=== PATIENT | male | born 1960 | race Caucasian/White ===

== ENCOUNTER 2023-02-03 08:37 | Emergency (ER) | payer MEDICARE ==
[2023-02-03] MEDS ORDERED: Sodium Chloride 0.9% 1000 ML 1,000 ML IV SCH (08:45)
--- NOTE | 2023-02-03 09:03 | ERPHSYRPT ---
- History of Present Illness Time Seen by Provider: 02/03/23 08:45 Source: patient Exam Limitations: no limitations Patient Subjective Stated Complaint: C/O SOB that started just prior to arrival to ER. States he sleeps with a CPAP and started suddenly having increased dif ficulty breathing. Denies any pain. Triage Nursing Assessment: Patient ambulated back to ER. He is alert and oriented; anxious/tearful. SKin tone normal. No cough noted. No SOB noted. No edema noted at this time. Lungs clear. Physician History: Patient is a 62-year-old white male who presents with a complaint of shortness of breath. The reports that he was in bed and started to complain of shortness of breath began gasping. She had never seen any prior episodes similar to this. Just prior to arrival he ripped off his CPAP mask and was gasping for air. He is O2 sat was 100% on arrival the only pain he had was in his left wrist transiently. Otherwise he denies any pain at all. Timing/Duration: today Activities at Onset: sleep Severity of Dyspnea-Max: moderate Severity of Dyspnea-Current: moderate Possible Cause: no prior episodes Associated Symptoms: anxiety Allergies/Adverse Reactions: No Known Drug Allergies Allergy (Verified 02/03/23 08:39) Home Medications: Amlodipine Besylate 5 mg [Norvasc 5 mg] 10 mg PO DAILY 02/03/23 [History] Atorvastatin Calcium [Lipitor] 1 tab PO HS 02/03/23 [History] Empagliflozin [Jardiance] 1 tab PO DAILY 02/03/23 [History] Ergocalciferol (Vitamin D2) [Vitamin D2] 1 cap PO WEEKLY 02/03/23 [History] Famotidine 1 tab PO DAILY 02/03/23 [History] Fluticasone Propionate [Flonase NASAL] 1 spray INTRANASAL DAILY 02/03/23 [History] Fluticasone/Umeclidin/Vilanter [Trelegy Ellipta 100-62.5-25] 1 puff PO DAILY 02/03/23 [History] Gabapentin [Neurontin] 1 cap PO HS 02/03/23 [History] Hydrochlorothiazide 25 mg [hydroDIURIL 25 MG] 1 tab PO DAILY 02/03/23 [History] Insulin Glargine [Lantus Insulin] See Rx Instructions .ROUTE .COMPLEX 02/03/23 [History] Insulin Lispro [Humalog] 20 unit SQ TIDWMEALS 02/03/23 [History] PANTOPRAZOLE 40 mg Tablet [Protonix 40MG Tablet] 1 tab PO BID 02/03/23 [History] Ropinirole HCl 1 tab PO HS 02/03/23 [History] Semaglutide [Ozempic] 0.5 mg SQ WEEKLY 02/03/23 [History] Spironolactone 25 mg [Aldactone 25 MG] 1 tab PO DAILY 02/03/23 [History] carvediloL [Carvedilol] 1 tab PO BID 02/03/23 [History] ondansetron HCL [Ondansetron HCl] 1 tab PO Q12H PRN PRN 02/03/23 [History] Hx Tetanus, Diphtheria Vaccination/Date Given: Yes Hx Influenza Vaccination/Date Given: Yes Hx Pneumococcal Vaccination/Date Given: Yes Immunizations Up to Date: Yes Travel Risk - International Travel Have you traveled outside of the country in past 3 weeks: No - Coronavirus Screening Are you exhibiting any of the following symptoms?: Yes Symptoms: Cough: New Onset, Shortness of Breath Close contact with a COVID-19 positive Pt in past 14-21 Days: No - Vaccine Status Have you recieved a Covid-19 vaccination: Yes [employer]: Moderna - Vaccination Dates Date of 2cond Vaccination (if applicable): ? - Review of Systems Constitutional: No Fever, No Chills Eyes: No Symptoms Ears, Nose, & Throat: No Symptoms Respiratory: Dyspnea, No Cough Cardiac: No Chest Pain, No Edema, No Syncope Abdominal/Gastrointestinal: No Abdominal Pain, No Nausea, No Vomiting, No Diarrhea Genitourinary Symptoms: No Dysuria Musculoskeletal: No Back Pain, No Neck Pain Skin: No Rash Neurological: No Dizziness, No Focal Weakness, No Sensory Changes Psychological: No Symptoms Endocrine: No Symptoms All Other Systems: Reviewed and Negative - Past Medical History Pertinent Past Medical History: Yes Neurological History: Peripheral Neuropathy Respiratory History: COPD, Sleep Apnea Endocrine Medical History: Diabetes Type II Musculoskeletal History: Fractures GI Medical History: No Pertinent History Other Medical History: ANKLE FRACTURE - Past Surgical History Past Surgical History: Yes Cardiac: Cardiac Catheterization Other Surgical History: ABLASION - Social History Smoking Status: Never smoker Exposure to second hand smoke: No Drug Use: none Patient Lives Alone: No - Nursing Vital Signs Nursing Vital Signs: Initial Vital Signs Temperature 97.7 F 02/03/23 08:45 Pulse Rate 73 02/03/23 08:45 Respiratory Rate 20 02/03/23 08:45 Blood Pressure 178/62 02/03/23 08:45 O2 Sat by Pulse Oximetry 100 02/03/23 08:45 Pain Scale Pain Intensity 0 - Physical Exam General Appearance: mild distress, alert Eye Exam: PERRL/EOMI Neck Exam: normal inspection, supple Respiratory Exam: normal breath sounds, lungs clear, airway intact, No chest tenderness Cardiovascular/Chest Exam: normal heart sounds, regular rate/rhythm Abdominal/Gastrointestinal Exam: soft, No tenderness, No distention, No mass Extremity Exam: non-tender, normal range of motion, normal inspection, no calf tenderness, no pedal edema Neurologic Exam: alert, 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, cooperative, 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 nml as tested, sensation nml, No motor deficits Skin Exam: normal color, warm, No dry SpO2 Interpretation: normal SpO2: 100 O2 Delivery: Room Air - Course Nursing assessment & vital signs reviewed: Yes EKG Interpreted by Me: RATE (70), Sinus Rhythm, NORMAL AXIS, Left Bundle Branch Block, Non-specific ST Changes Rhythm Strip: Rate (70), Normal Sinus Rhythm - CT Exams Chest CT Interpretation: Tele-radiologist Report (No acute findings on the CT scan according to the telemetry radiologist), Other (Telemetry radiologist report reviewed by me.) Ordered Tests: Active Orders 24 hr Category Date Time Status EKG-ER Only STAT Care 02/03/23 08:45 Active IV Insertion STAT Care 02/03/23 08:45 Active CHEST WITH CONTRAST [CT] Stat Exams 02/03/23 08:46 Taken CBC W DIFF Stat Lab 02/03/23 08:50 Completed CMP Stat Lab 02/03/23 08:50 Completed D-DIMER QUANTITATIVE Stat Lab 02/03/23 08:50 Completed Lactic Acid Stat Lab 02/03/23 08:45 Completed Lactic Acid Stat Lab 02/03/23 11:06 Stop Req MAGNESIUM Stat Lab 02/03/23 08:50 Completed NT PRO BNPII Stat Lab 02/03/23 08:50 Completed TROPONIN Q4H Lab 02/03/23 08:50 Completed TROPONIN Q4H Lab 02/03/23 12:45 Ordered TROPONIN Q4H Lab 02/03/23 16:45 Ordered UA W/RFX UR CULTURE Stat Lab 02/03/23 09:12 Completed Medication Summary Generic Name Dose Route Start Last Admin Trade Name Jose Guadalupeq PRN Reason Stop Dose Admin Sodium Chloride 1,000 mls @ 100 mls/hr 02/03/23 08:45 02/03/23 09:04 Sodium Chloride 0.9% 1000 Ml IV 03/05/23 08:44 100 mls/hr .Q10H ALVAREZ Administration Lab/Rad Data: Laboratory Result Diagrams 02/03/23 08:50 02/03/23 08:50 Laboratory Results 02/03/23 02/03/23 02/03/23 Range/Units 09:12 09:00 08:50 WBC (4.0-10.5) x10^3/uL RBC (4.1-5.6) x10^6/uL Hgb (12.5-18.0) g/dL Hct (42-50) % MCV (78-100) fL MCH (26-32) pg MCHC (32-36) g/dL RDW (11.5-14.0) % Plt Count (150-450) x10^3/uL MPV (7.5-11.0) fL Gran % (36.0-66.0) % Immature Gran % (Auto) (0.00-0.4) % Nucleat RBC Rel Count (0.00-0.1) % Eos # (Auto) (0-0.5) x10^3/uL Immature Gran # (Auto) (0.00-0.03) x10^3u/L Absolute Lymphs (auto) (1.0-4.6) x10^3/uL Absolute Monos (auto) (0.0-1.3) x10^3/uL Absolute Nucleated RBC (0.00-0.01) x10^3u/L Lymphocytes % (24.0-44.0) % Monocytes % (0.0-12.0) % Eosinophils % (0.00-5.0) % Basophils % (0.0-0.4) % Absolute Granulocytes (1.4-6.9) x10^3/uL Basophils # (0-0.4) x10^3/uL D-Dimer (0.0-0.50) mg/L Sodium (137-145) mmol/L Potassium (3.5-5.1) mmol/L Chloride (98-107) mmol/L Carbon Dioxide (22-30) mmol/L Anion Gap (5-15) MEQ/L BUN (9-20) mg/dL Creatinine (0.66-1.25) mg/dL Estimated GFR ML/MIN Glucose (74-106) mg/dL Lactic Acid (0.4-2.0) Calcium (8.4-10.2) mg/dL Magnesium (1.6-2.3) mg/dL Total Bilirubin (0.2-1.3) mg/dL AST (17-59) U/L ALT (0-50) U/L Alkaline Phosphatase (38-126) U/L Troponin I (0.000-0.034) ng/mL NT-Pro-B Natriuret Pep 53.8 (<300) pg/mL Serum Total Protein (6.3-8.2) g/dL Albumin (3.5-5.0) g/dL Urine Color Yellow (Yellow) Urine Appearance Clear (Clear) Urine pH 7.5 (4.6-8.0) Ur Specific [place] 1.015 (1.005-1.030) Urine Protein Negative (Negative) Urine Glucose (UA) >=1000 A (Negative) mg/dL Urine Ketones Negative (Negative) Urine Blood Negative (Negative) Urine Nitrite Negative (Negative) Urine Bilirubin Negative (Negative) Urine Urobilinogen 0.2 (0.2) mg/dL Ur Leukocyte Esterase Negative (Negative) U Hyaline Cast (Auto) NONE SEEN (0-2) /LPF Urine Microscopic RBC 0-2 (0-5) /HPF Urine Microscopic WBC 0-2 (0-5) /HPF Ur Epithelial Cells None Seen (None Seen) /HPF Urine Bacteria None Seen (None Seen) /HPF Urine Culture Reflexed NO (NO) Influenza Type A Ag NEGATIVE (NEGATIVE) Influenza Type B Ag NEGATIVE (NEGATIVE) RSV (PCR) NEGATIVE (NEGATIVE) SARS-CoV-2 (PCR) NEGATIVE (NEGATIVE) 02/03/23 02/03/23 02/03/23 Range/Units 08:50 08:50 08:50 WBC 8.8 (4.0-10.5) x10^3/uL RBC 5.27 (4.1-5.6) x10^6/uL Hgb 14.9 (12.5-18.0) g/dL Hct 46.0 (42-50) % MCV 87.3 (78-100) fL MCH 28.3 (26-32) pg MCHC 32.4 (32-36) g/dL RDW 15.2 H (11.5-14.0) % Plt Count 219 (150-450) x10^3/uL MPV 9.1 (7.5-11.0) fL Gran % 63.7 (36.0-66.0) % Immature Gran % (Auto) 0.6 H (0.00-0.4) % Nucleat RBC Rel Count 0.0 (0.00-0.1) % Eos # (Auto) 0.21 (0-0.5) x10^3/uL Immature Gran # (Auto) 0.05 H (0.00-0.03) x10^3u/L Absolute Lymphs (auto) 2.12 (1.0-4.6) x10^3/uL Absolute Monos (auto) 0.75 (0.0-1.3) x10^3/uL Absolute Nucleated RBC 0.00 (0.00-0.01) x10^3u/L Lymphocytes % 24.2 (24.0-44.0) % Monocytes % 8.6 (0.0-12.0) % Eosinophils % 2.4 (0.00-5.0) % Basophils % 0.5 (0.0-0.4) % Absolute Granulocytes 5.59 (1.4-6.9) x10^3/uL Basophils # 0.04 (0-0.4) x10^3/uL D-Dimer 0.21 (0.0-0.50) mg/L Sodium 140 (137-145) mmol/L Potassium 3.5 (3.5-5.1) mmol/L Chloride 96 L (98-107) mmol/L Carbon Dioxide 31 H (22-30) mmol/L Anion Gap 16.2 H (5-15) MEQ/L BUN 21 H (9-20) mg/dL Creatinine 0.76 (0.66-1.25) mg/dL Estimated GFR > 60.0 ML/MIN Glucose 133 H (74-106) mg/dL Lactic Acid (0.4-2.0) Calcium 9.4 (8.4-10.2) mg/dL Magnesium 1.9 (1.6-2.3) mg/dL Total Bilirubin 0.50 (0.2-1.3) mg/dL AST 30 (17-59) U/L ALT 41 (0-50) U/L Alkaline Phosphatase 72 (38-126) U/L Troponin I < 0.012 (0.000-0.034) ng/mL NT-Pro-B Natriuret Pep (<300) pg/mL Serum Total Protein 8.0 (6.3-8.2) g/dL Albumin 4.7 (3.5-5.0) g/dL Urine Color (Yellow) Urine Appearance (Clear) Urine pH (4.6-8.0) Ur Specific [place] (1.005-1.030) Urine Protein (Negative) Urine Glucose (UA) (Negative) mg/dL Urine Ketones (Negative) Urine Blood (Negative) Urine Nitrite (Negative) Urine Bilirubin (Negative) Urine Urobilinogen (0.2) mg/dL Ur Leukocyte Esterase (Negative) U Hyaline Cast (Auto) (0-2) /LPF Urine Microscopic RBC (0-5) /HPF Urine Microscopic WBC (0-5) /HPF Ur Epithelial Cells (None Seen) /HPF Urine Bacteria (None Seen) /HPF Urine Culture Reflexed (NO) Influenza Type A Ag (NEGATIVE) Influenza Type B Ag (NEGATIVE) RSV (PCR) (NEGATIVE) SARS-CoV-2 (PCR) (NEGATIVE) 02/03/23 Range/Units 08:45 WBC (4.0-10.5) x10^3/uL RBC (4.1-5.6) x10^6/uL Hgb (12.5-18.0) g/dL Hct (42-50) % MCV (78-100) fL MCH (26-32) pg MCHC (32-36) g/dL RDW (11.5-14.0) % Plt Count (150-450) x10^3/uL MPV (7.5-11.0) fL Gran % (36.0-66.0) % Immature Gran % (Auto) (0.00-0.4) % Nucleat RBC Rel Count (0.00-0.1) % Eos # (Auto) (0-0.5) x10^3/uL Immature Gran # (Auto) (0.00-0.03) x10^3u/L Absolute Lymphs (auto) (1.0-4.6) x10^3/uL Absolute Monos (auto) (0.0-1.3) x10^3/uL Absolute Nucleated RBC (0.00-0.01) x10^3u/L Lymphocytes % (24.0-44.0) % Monocytes % (0.0-12.0) % Eosinophils % (0.00-5.0) % Basophils % (0.0-0.4) % Absolute Granulocytes (1.4-6.9) x10^3/uL Basophils # (0-0.4) x10^3/uL D-Dimer (0.0-0.50) mg/L Sodium (137-145) mmol/L Potassium (3.5-5.1) mmol/L Chloride (98-107) mmol/L Carbon Dioxide (22-30) mmol/L Anion Gap (5-15) MEQ/L BUN (9-20) mg/dL Creatinine (0.66-1.25) mg/dL Estimated GFR ML/MIN Glucose (74-106) mg/dL Lactic Acid 2.0 (0.4-2.0) Calcium (8.4-10.2) mg/dL Magnesium (1.6-2.3) mg/dL Total Bilirubin (0.2-1.3) mg/dL AST (17-59) U/L ALT (0-50) U/L Alkaline Phosphatase (38-126) U/L Troponin I (0.000-0.034) ng/mL NT-Pro-B Natriuret Pep (<300) pg/mL Serum Total Protein (6.3-8.2) g/dL Albumin (3.5-5.0) g/dL Urine Color (Yellow) Urine Appearance (Clear) Urine pH (4.6-8.0) Ur Specific [place] (1.005-1.030) Urine Protein (Negative) Urine Glucose (UA) (Negative) mg/dL Urine Ketones (Negative) Urine Blood (Negative) Urine Nitrite (Negative) Urine Bilirubin (Negative) Urine Urobilinogen (0.2) mg/dL Ur Leukocyte Esterase (Negative) U Hyaline Cast (Auto) (0-2) /LPF Urine Microscopic RBC (0-5) /HPF Urine Microscopic WBC (0-5) /HPF Ur Epithelial Cells (None Seen) /HPF Urine Bacteria (None Seen) /HPF Urine Culture Reflexed (NO) Influenza Type A Ag (NEGATIVE) Influenza Type B Ag (NEGATIVE) RSV (PCR) (NEGATIVE) SARS-CoV-2 (PCR) (NEGATIVE) - Progress Progress: improved Progress Note: 02/03/23 11:24 Differential diagnosis of this patient included congestive heart failure pulmonary emboli cardiac ischemia etc. the work-up for all these things was negative. Medical Desision Making - Diagnostic Testing Diagnostic test were ordered, analyzed, and reviewed by me: Yes Radiological Interpretation: Reviewed by me - Departure Departure Disposition: Home Clinical Impression: Dyspnea Condition: Stable Critical Care Time: No Referrals: BRETT VOGEL [Primary Care Provider] - Follow up/PCP as directed Instructions: Shortness of Breath (Dyspnea) (DC) Prescriptions: Hydroxyzine HCl 25 mg [Atarax 25 mg] 25 mg PO Q6H 8 Days #30 tablet
[2023-02-03] MEDS ORDERED: Sodium Chloride 0.9% 1000 ML 1,000 ML ONE (09:04)
[2023-02-03 09:05] LABS: Absolute Neutrophil Ct (ANC) 5.59 x10^3/uL (1.4-6.9); BASOPHIL % 0.5 % (0.0-0.4); Basophil (Absolute #) 0.04 x10^3/uL (0-0.4); Eosinophil % 2.4 % (0.00-5.0); Eosinophil (Absolute #) 0.21 x10^3/uL (0-0.5); Hemoglobin 14.9 g/dL (12.5-18.0); IMMATURE GRAN # 0.05 x10^3u/L (0.00-0.03); IMMATURE GRAN % 0.6 % (0.00-0.4); Lymphocyte (Absolute #) 2.12 x10^3/uL (1.0-4.6); Lymphocytes % 24.2 % (24.0-44.0); Mean Cell Volume 87.3 fL (78-100); Mean Corpuscular Hemoglobin 28.3 pg (26-32); Mean Corpuscular Hgb Concent. 32.4 g/dL (32-36); Mean Platelet Volume 9.1 fL (7.5-11.0); Monocyte (Absolute #) 0.75 x10^3/uL (0.0-1.3); Monocytes % 8.6 % (0.0-12.0); Neutrophil % 63.7 % (36.0-66.0); Platelet Count 219 x10^3/uL (150-450); Red Blood Count 5.27 x10^6/uL (4.1-5.6); Red Cell Distribution Width 15.2 % (11.5-14.0); White Blood Count 8.8 x10^3/uL (4.0-10.5)
[2023-02-03 09:28] LABS: Appearance Clear (Clear); Bacteria None Seen /HPF (None Seen); Bilirubin Negative (Negative); Blood Negative (Negative); Epithelial Cells None Seen /HPF (None Seen); Glucose, Urine >=1000 mg/dL (Negative); Hyaline Casts NONE SEEN /LPF (0-2); Ketones Negative (Negative); Leukocyte Esterase Negative (Negative); Nitrite Negative (Negative); Ph 7.5 (4.6-8.0); Protein,Urine Dip Negative (Negative); RBC 0-2 /HPF (0-5); Specific Gravity 1.015 (1.005-1.030); Urobilinogen 0.2 mg/dL (0.2); WBC 0-2 /HPF (0-5)
[2023-02-03 09:35] LABS: ALBUMIN 4.7 g/dL (3.5-5.0); ALKALINE PHOSPHATASE 72 U/L (38-126); ANION GAP 16.2 MEQ/L (5-15); BLOOD UREA NITROGEN 21 mg/dL (9-20); CHLORIDE 96 mmol/L (98-107); Calcium 9.4 mg/dL (8.4-10.2); Carbon Dioxide 31 mmol/L (22-30); Creatinine 1 0.76 mg/dL (0.66-1.25); EST GLOMERULAR FILTRATION RATE > 60.0 ML/MIN; Glucose 133 mg/dL (74-106); MAGNESIUM 1.9 mg/dL (1.6-2.3); Potassium 3.5 mmol/L (3.5-5.1); SGOT/AST 30 U/L (17-59); SGPT/ALT 41 U/L (0-50); SODIUM 140 mmol/L (137-145); TROPONIN < 0.012 ng/mL (0.000-0.034)
[2023-02-03 09:37] LABS: ADD URINE CULTURE? NO (NO)
[2023-02-03 09:43] LABS: INFLUENZA A NEGATIVE (NEGATIVE); INFLUENZA B NEGATIVE (NEGATIVE); RESPIRATORY SYNCTIAL VIRUS NEGATIVE (NEGATIVE); SARS-CoV-2 Xpert Express NEGATIVE (NEGATIVE)
[2023-02-03 11:28] VITALS: BP 143/68; PULSE 65; O2SAT 100
--- NOTE | 2023-02-03 20:07 | XRAY ---
Indication: Short of breath. COPD. Multiple contiguous axial images obtained through the chest using 100 cc Isovue 370 contrast. Comparison: None Lungs demonstrates mild bilateral dependent atelectasis and a few tiny right lung calcified granulomas. No infiltrate, effusion, or pneumothorax. Heart is enlarged with scattered coronary calcifications. Aorta mildly arteriosclerotic without aneurysm/dissection. Small left/tiny right hilar calcified nodes. No pathologic mediastinal/hilar lymphadenopathy. Bony thorax intact with mild degenerative changes throughout the spine. Limited upper abdomen demonstrates mild diffuse fatty liver and 1.9 cm posterior right lobe hepatic cyst versus hemangioma. Impression: 1. Cardiomegaly, fatty liver, hepatic cyst/hemangioma, degenerative spondylosis, and old granulomatous disease. 2. Remaining CT chest with contrast exam is negative. Comment: Preliminary interpretation made by [facility]. No critical discrepancy.
== END 2023-02-03 11:37 | disposition home or self-care (01) ==
LOC: ED 08:37
DX: R06.00 Dyspnea, unspecified (principal); E11.42 Type 2 diabetes mellitus with diabetic polyneuropathy; Z79.4 Long term (current) use of insulin; Z79.85 Long-term (current) use of injectable non-insulin antidiabetic drugs; Z79.899 Other long term (current) drug therapy; Z20.828 Contact with and (suspected) exposure to other viral communicable diseases
CPT/HCPCS: 0241U; 36000; 36415; 71260; 80053; 81001; 83605; 83735; 83880; 84484; 85025; 85379; 93005; 99284

== ENCOUNTER 2023-07-23 05:32 | Emergency (ER) | payer MEDICARE ==
[2023-07-23 06:26] VITALS: TEMP 97.3
[2023-07-23] MEDS ORDERED: Sodium Chloride 0.9% 1000 ML 1,000 ML IV STA (06:33)
[2023-07-23] MEDS ORDERED: Sodium Chloride 0.9% 1000 ML 1,000 ML ONE (06:38)
[2023-07-23 06:41] LABS: BASOPHIL % 0.5 % (0.0-0.4); Basophil (Absolute #) 0.04 x10^3/uL (0-0.4); Eosinophil % 2.8 % (0.00-5.0); Eosinophil (Absolute #) 0.24 x10^3/uL (0-0.5); Hematocrit 45.4 % (42-50); Hemoglobin 14.7 g/dL (12.5-18.0); IMMATURE GRAN # 0.04 x10^3u/L (0.00-0.03); IMMATURE GRAN % 0.5 % (0.00-0.4); Lymphocyte (Absolute #) 2.26 x10^3/uL (1.0-4.6); Lymphocytes % 26.8 % (24.0-44.0); Mean Cell Volume 90.8 fL (78-100); Mean Corpuscular Hemoglobin 29.4 pg (26-32); Mean Corpuscular Hgb Concent. 32.4 g/dL (32-36); Mean Platelet Volume 9.1 fL (7.5-11.0); Monocyte (Absolute #) 0.76 x10^3/uL (0.0-1.3); Neutrophil % 60.4 % (36.0-66.0); Platelet Count 229 x10^3/uL (150-450); Red Cell Distribution Width 15.6 % (11.5-14.0); White Blood Count 8.4 x10^3/uL (4.0-10.5)
[2023-07-23 07:08] LABS: ALBUMIN 4.4 g/dL (3.5-5.0); ALKALINE PHOSPHATASE 63 U/L (38-126); ANION GAP 11.3 MEQ/L (5-15); BLOOD UREA NITROGEN 23 mg/dL (9-20); CHLORIDE 95 mmol/L (98-107); Calcium 9.2 mg/dL (8.4-10.2); Carbon Dioxide 38 mmol/L (22-30); Creatinine 1 0.91 mg/dL (0.66-1.25); EST GLOMERULAR FILTRATION RATE > 60.0 ML/MIN; Glucose 92 mg/dL (74-106); NT PRO BNPII 67.5 pg/mL (<300); Potassium 3.3 mmol/L (3.5-5.1); SGOT/AST 31 U/L (17-59); SGPT/ALT 41 U/L (0-50); SODIUM 141 mmol/L (137-145); Total Protein 7.4 g/dL (6.3-8.2)
--- NOTE | 2023-07-23 07:17 | ERPHSYRPT ---
- History of Present Illness Time Seen by Provider: 07/23/23 07:00 Source: patient Exam Limitations: no limitations Patient Subjective Stated Complaint: pt states that yesterday around 1330 he was in his kitchen and "blacked out" falling to floor hitting right arm and head on wire rack. pt states that when he woke up he was confused as to where he was or what had happened. denies lightheadedness or dizziness before, during, or after this event. states that within a few minutes he felt better and didn't think he needed to seek medical attention. this morning when he woke up at approx 0430 he started feeling "uneasy". he reports that his normally has a "cloudy mind" since he had a head hit in 2016 after a fall but that today it has been much worse than normal and a couple of time he has been confused. he said once one the way here he forgot where he was going or how to get here then once in the waiting room he forgot where he was and had to look around to figure out that he was in the hospital. Triage Nursing Assessment: pt ambulated to room 9 independently with slow steady gait after standing on scales for weight acquisition. pt is alert and oriented times three, able to move all extremities, able to speak in complete sentences ( slow speech pattern), and with resp even and unlabored. bilat radial and pedal pulses palpable and equal. heart sound present and regular. lung sounds clear anterior bilaterally. NIHSS 0. denies numbness, tingling, n/v, diarrhea, constipation, lightheadedness, dizziness, kat, difficulty with urination or bowel elimination, fever, cough, chills, pain. reports that when he has "these spells" his mind is very cloudy, he is confused, he is nauseated, and has trouble finding the words he wants to say. delay in answering questions as pt reports it is difficult to find the words he wants or how to explain what he wants to say. denies difficulty with swallowing or speaking other than word finding. Physician History: Patient is a 62-year-old white male who suffered an episode of syncope yesterday he fell hit his head and scraped his right arm on a wire rack which was holding pots 2 of which fell off and hit him. He was somewhat confused immediately afterwards he also has been having trouble recently as far as the cloudy brain goes of being unsure of why he is where he is momentarily and being confused. He has had a recent work-up for his "cloudy brain" and is scheduled to see a neurologist with an appointment next week. His also had a recent MRI which showed some brain shrinkage. In 2016 he fell on the ice hitting his head and since that time has had short-term memory loss. He also has a cardiac history and that he had some arrhythmia he is underwent an ablation with Dr. Rosales and was able to have no further problems with arrhythmia. Witnessed: unwitnessed Prior Episodes: other Timing/Duration: yesterday (Single episode yesterday) Precipitating Factors: unknown Context: standing Loss of Consciousness: brief (seconds), memory impairment Charcter of event(s): collapsed Allergies/Adverse Reactions: No Known Drug Allergies Allergy (Verified 02/03/23 08:39) Home Medications: Amlodipine Besylate 5 mg [Norvasc 5 mg] 10 mg PO DAILY 02/03/23 [History] Atorvastatin Calcium [Lipitor] 1 tab PO DAILY 02/03/23 [History] Empagliflozin [Jardiance] 1 tab PO DAILY 02/03/23 [History] Famotidine 1 tab PO DAILY 02/03/23 [History] Fluticasone Propionate [Flonase NASAL] 1 spray INTRANASAL DAILY 02/03/23 [History] Fluticasone/Umeclidin/Vilanter [Trelegy Ellipta 100-62.5-25] 1 puff PO DAILY 02/03/23 [History] Gabapentin [Neurontin] 1 cap PO HS 02/03/23 [History] Hydrochlorothiazide 25 mg [hydroDIURIL 25 MG] 1 tab PO DAILY 02/03/23 [History] Insulin Glargine [Lantus Insulin] 80 units SQ BIDWMEALS 02/03/23 [History] Insulin Lispro [Humalog] 30 unit SQ BIDWMEALS 02/03/23 [History] PANTOPRAZOLE 40 mg Tablet [Protonix 40MG Tablet] 1 tab PO DAILY 02/03/23 [History] Ropinirole HCl 1 tab PO HS 02/03/23 [History] Semaglutide [Ozempic] 0.5 mg SQ WEEKLY 02/03/23 [History] Spironolactone 25 mg [Aldactone 25 MG] 1 tab PO DAILY 02/03/23 [History] carvediloL [Carvedilol] 1 tab PO BID 02/03/23 [History] ondansetron HCL [Ondansetron HCl] 1 tab PO Q12H PRN PRN 02/03/23 [History] Gabapentin [Neurontin ] 400 mg PO BIDWMEALS 07/23/23 [History] HydrALAzine HCL 25 MG TAB [Apresoline 25 MG TABLET] 25 mg PO BID 07/23/23 [History] Metformin HCl 500 mg [Glucophage 500 MG] 500 mg PO BIDWM 07/23/23 [History] Torsemide 20 mg [Demadex 20 mg] 20 mg PO DAILY 07/23/23 [History] Hx Tetanus, Diphtheria Vaccination/Date Given: (unknown) Hx Influenza Vaccination/Date Given: Yes Hx Pneumococcal Vaccination/Date Given: Yes Immunizations Up to Date: No Travel Risk - International Travel Have you traveled outside of the country in past 3 weeks: No - Coronavirus Screening Are you exhibiting any of the following symptoms?: No Close contact with a COVID-19 positive Pt in past 14-21 Days: No - Vaccine Status Have you recieved a Covid-19 vaccination: Yes 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: Moderna - Vaccination Dates Date of 2cond Vaccination (if applicable): unknown - Past Medical History Pertinent Past Medical History: Yes Neurological History: Peripheral Neuropathy, Other ENT History: No Pertinent History Cardiac History: Arrhythmia, Coronary Artery Disease, High Cholesterol, Hypertension Respiratory History: COPD, Sleep Apnea Endocrine Medical History: Diabetes Type II Musculoskeletal History: Fractures GI Medical History: No Pertinent History History: No Pertinent History Psycho-Social History: No Pertinent History Male Reproductive Disorders: No Pertinent History Other Medical History: ANKLE FRACTURE, "cloudy mind" seeing neurologist and MRI result of "shrinking brain" appt with Dr fabio Castanon at [facility] on 07/30/23. "irregular heartbeat" and had ablation at [facility] ([facility]) - Past Surgical History Past Surgical History: Yes Neuro Surgical History: No Pertinent History Cardiac: Cardiac Catheterization Respiratory: No Pertinent History Gastrointestinal: No Pertinent History Genitourinary: No Pertinent History Musculoskeletal: No Pertinent History Male Surgical History: No Pertinent History Other Surgical History: ABLATION - Social History Smoking Status: Never smoker Exposure to second hand smoke: No Drug Use: none Patient Lives Alone: Yes - Review of Systems Constitutional: No Fever, No Chills Eyes: No Symptoms Ears, Nose, & Throat: No Symptoms Respiratory: No Cough, No Dyspnea Cardiac: No Chest Pain, No Edema, No Syncope Abdominal/Gastrointestinal: No Abdominal Pain, No Nausea, No Vomiting, No Diarrhea Genitourinary Symptoms: No Dysuria Musculoskeletal: No Back Pain, No Neck Pain Skin: No Rash Neurological: Other (Syncope), No Dizziness, No Focal Weakness, No Sensory Changes Psychological: No Symptoms Endocrine: No Symptoms All Other Systems: Reviewed and Negative Physical Exam - Nursing Vital Signs Nursing Vital Signs: Initial Vital Signs Temperature 97.3 F 07/23/23 05:57 Pulse Rate 62 07/23/23 05:57 Respiratory Rate 16 07/23/23 05:57 Blood Pressure 173/88 07/23/23 05:57 O2 Sat by Pulse Oximetry 98 07/23/23 05:57 Pain Scale Pain Intensity 0 - Renetta Coma Scale Best Eye Response (Renetta): (4) open spontaneously Best Verbal Response (Baudette): (5) oriented Best Motor Response (Baudette): (6) obeys commands Renetta Total: 15 - Physical Exam General Appearance: no apparent distress, alert Eye Exam: bilateral eye: PERRL, EOMI Ears, Nose, Throat Exam: normal ENT inspection, pharynx normal, moist mucous membranes Neck Exam: normal inspection, non-tender, supple, full range of motion Respiratory: normal breath sounds, lungs clear, No chest tenderness, No respiratory distress Cardiovascular: regular rate/rhythm, capillary refill <2 sec, No murmur, No pulse deficit Gastrointestinal: soft, No tenderness, No distention, No mass Back Exam: normal inspection, normal range of motion, No CVA tenderness, No silvia tebral tenderness Extremity Exam: normal inspection, normal range of motion, pelvis stable, No tenderness Mental Status: alert, 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, 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 Exam: normal speech, PERRL, No facial droop Coordination/Gait: normal finger to nose Motor/Sensory: no motor deficit, no sensory deficit, no pronator drift Skin Exam: normal color, warm, dry, No rash SpO2: 94 - Course Nursing assessment & vital signs reviewed: Yes EKG Interpreted by Me: RATE (61), Sinus Rhythm, Left Bon Aqua Deviation, Other (Left ventricular hypertrophy nonspecific interventricular conduction defect with left axis deviation) - CT Exams Head CT Interpretation: Negative Ordered Tests: Active Orders 24 hr Category Date Time Status EKG-ER Only STAT Care 07/23/23 06:33 Active IV Insertion STAT Care 07/23/23 06:33 Active HEAD WITHOUT CONTRAST [CT] Stat Exams 07/23/23 06:59 Completed CBC W DIFF Stat Lab 07/23/23 06:21 Completed CMP Stat Lab 07/23/23 06:21 Completed D-DIMER QUANTITATIVE Stat Lab 07/23/23 06:21 Completed Lactic Acid Stat Lab 07/23/23 06:40 Completed NT PRO BNPII Stat Lab 07/23/23 06:21 Completed TROPONIN Q4H Lab 07/23/23 06:21 Completed TROPONIN Q4H Lab 07/23/23 10:45 Ordered TROPONIN Q4H Lab 07/23/23 14:45 Ordered Medication Summary Discontinued Medications Generic Name Dose Route Start Last Admin Trade Name Ruben PRN Reason Stop Dose Admin Sodium Chloride 1,000 mls @ 999 mls/hr 07/23/23 06:33 07/23/23 08:20 Sodium Chloride 0.9% 1000 Ml IV 07/23/23 07:33 Infused .Q1H1M STA Infusion Sodium Chloride Confirm 07/23/23 06:38 Sodium Chloride 0.9% 1000 Ml Administered 07/23/23 06:39 Dose 1,000 mls @ ud .[facility] .[email or web address] Lab/Rad Data: Laboratory Result Diagrams 07/23/23 06:21 07/23/23 06:21 Laboratory Results 07/23/23 07/23/23 07/23/23 Range/Units 06:40 06:21 06:21 WBC (4.0-10.5) x10^3/uL RBC (4.1-5.6) x10^6/uL Hgb (12.5-18.0) g/dL Hct (42-50) % MCV (78-100) fL MCH (26-32) pg MCHC (32-36) g/dL RDW (11.5-14.0) % Plt Count (150-450) x10^3/uL MPV (7.5-11.0) fL Gran % (36.0-66.0) % Immature Gran % (Auto) (0.00-0.4) % Nucleat RBC Rel Count (0.00-0.1) % Eos # (Auto) (0-0.5) x10^3/uL Immature Gran # (Auto) (0.00-0.03) x10^3u/L Absolute Lymphs (auto) (1.0-4.6) x10^3/uL Absolute Monos (auto) (0.0-1.3) x10^3/uL Absolute Nucleated RBC (0.00-0.01) x10^3u/L Lymphocytes % (24.0-44.0) % Monocytes % (0.0-12.0) % Eosinophils % (0.00-5.0) % Basophils % (0.0-0.4) % Absolute Granulocytes (1.4-6.9) x10^3/uL Basophils # (0-0.4) x10^3/uL D-Dimer 0.27 (0.0-0.50) mg/L Sodium (137-145) mmol/L Potassium (3.5-5.1) mmol/L Chloride (98-107) mmol/L Carbon Dioxide (22-30) mmol/L Anion Gap (5-15) MEQ/L BUN (9-20) mg/dL Creatinine (0.66-1.25) mg/dL Estimated GFR ML/MIN Glucose (74-106) mg/dL Lactic Acid 2.3 H (0.4-2.0) Calcium (8.4-10.2) mg/dL Total Bilirubin (0.2-1.3) mg/dL AST (17-59) U/L ALT (0-50) U/L Alkaline Phosphatase (38-126) U/L Troponin I < 0.012 (0.000-0.034) ng/mL NT-Pro-B Natriuret Pep (<300) pg/mL Serum Total Protein (6.3-8.2) g/dL Albumin (3.5-5.0) g/dL 07/23/23 07/23/23 Range/Units 06:21 06:21 WBC 8.4 (4.0-10.5) x10^3/uL RBC 5.00 (4.1-5.6) x10^6/uL Hgb 14.7 (12.5-18.0) g/dL Hct 45.4 (42-50) % MCV 90.8 (78-100) fL MCH 29.4 (26-32) pg MCHC 32.4 (32-36) g/dL RDW 15.6 H (11.5-14.0) % Plt Count 229 (150-450) x10^3/uL MPV 9.1 (7.5-11.0) fL Gran % 60.4 (36.0-66.0) % Immature Gran % (Auto) 0.5 H (0.00-0.4) % Nucleat RBC Rel Count 0.0 (0.00-0.1) % Eos # (Auto) 0.24 (0-0.5) x10^3/uL Immature Gran # (Auto) 0.04 H (0.00-0.03) x10^3u/L Absolute Lymphs (auto) 2.26 (1.0-4.6) x10^3/uL Absolute Monos (auto) 0.76 (0.0-1.3) x10^3/uL Absolute Nucleated RBC 0.00 (0.00-0.01) x10^3u/L Lymphocytes % 26.8 (24.0-44.0) % Monocytes % 9.0 (0.0-12.0) % Eosinophils % 2.8 (0.00-5.0) % Basophils % 0.5 (0.0-0.4) % Absolute Granulocytes 5.10 (1.4-6.9) x10^3/uL Basophils # 0.04 (0-0.4) x10^3/uL D-Dimer (0.0-0.50) mg/L Sodium 141 (137-145) mmol/L Potassium 3.3 L (3.5-5.1) mmol/L Chloride 95 L (98-107) mmol/L Carbon Dioxide 38 H (22-30) mmol/L Anion Gap 11.3 (5-15) MEQ/L BUN 23 H (9-20) mg/dL Creatinine 0.91 (0.66-1.25) mg/dL Estimated GFR > 60.0 ML/MIN Glucose 92 (74-106) mg/dL Lactic Acid (0.4-2.0) Calcium 9.2 (8.4-10.2) mg/dL Total Bilirubin 0.40 (0.2-1.3) mg/dL AST 31 (17-59) U/L ALT 41 (0-50) U/L Alkaline Phosphatase 63 (38-126) U/L Troponin I (0.000-0.034) ng/mL NT-Pro-B Natriuret Pep 67.5 (<300) pg/mL Serum Total Protein 7.4 (6.3-8.2) g/dL Albumin 4.4 (3.5-5.0) g/dL - Progress Progress: improved Medical Desision Making - Diagnostic Testing Diagnostic test were ordered, analyzed, and reviewed by me: Yes Radiological Interpretation: Reviewed by me - Risk of complications Low Risk: Low risk of morbidity from additional dx testing or treatment - Departure Departure Disposition: Home Clinical Impression: Syncope Condition: Stable Critical Care Time: No Referrals: AKI DANG MD [Primary Care Provider] - Follow up/PCP as directed Instructions: Syncope (Fainting) (DC)
--- NOTE | 2023-07-23 08:14 | XRAY ---
CLINICAL HISTORY:syncope COMPARISON:None TECHNIQUE:Axial noncontrast CT scan of the brain was performed from the skull base to the high parietal region. CTDI: 53.92, DLP: 1016.25. FINDINGS: The visualized brain parenchyma shows normal appearance. No focal parenchymal abnormalities are demonstrated. Tracey-white matter differentiation is maintained. Mild prominent ventricular system and extra-axial CSF spaces suggesting age-related involutional changes. No midline shifts or deformity. No intracerebral or extra axial hematoma. Normal size and configuration of the cerebral ventricles. Normal CT appearance of the posterior fossa structures namely the cerebellar hemispheres, brainstem and cerebellar peduncles. The IACs are unremarkable. The cerebello-pontine angles are clear. The pituitary gland, the pineal gland, the optic chiasm is unremarkable. The osseous structures in the skull base are unremarkable. No definite calvarium fractures. Mild mucosal thickening of the right side of sphenoid sinus. IMPRESSION: No evidence of established infarction, intracranial or extracranial hemorrhage. Age-related brain involutional changes. Electronically Signed by: Anh Can MD. (07/23/2023 07:13:39 CUSTOMER FACILITIES SUPERVISOR)
[2023-07-23 09:55] VITALS: BP 169/81; PULSE 68; RESP 16; O2SAT 96
== END 2023-07-23 09:56 | disposition home or self-care (01) ==
LOC: ED 05:32
DX: R55 Syncope and collapse (principal); R41.0 Disorientation, unspecified; E78.5 Hyperlipidemia, unspecified; I10 Essential (primary) hypertension; E11.42 Type 2 diabetes mellitus with diabetic polyneuropathy; Z79.84 Long term (current) use of oral hypoglycemic drugs; Z79.4 Long term (current) use of insulin; Z79.85 Long-term (current) use of injectable non-insulin antidiabetic drugs; Z79.899 Other long term (current) drug therapy
CPT/HCPCS: 36000; 36415; 70450; 80053; 83605; 83880; 84484; 85025; 85379; 93005; 96360; 99284

== ENCOUNTER 2023-11-08 10:49 | Emergency (ER) | payer MEDICARE ==
--- NOTE | 2023-11-08 10:57 | ERPHSYRPT ---
- History of Present Illness Time Seen by Provider: 11/08/23 10:57 Historian: patient Exam Limitations: no limitations Physician History: This is a morbidly obese 63-year-old white male patient of Dr. Dang who presents to the emergency department with intermittent central abdominal pain that been present over the last 2 weeks. In the last 12 hours prior to arrival, the patient states that the pain is now constant with some cramping pressure and associated nausea and vomiting. Patient vomited twice prior to arrival. Patient's last bowel movement was 2 days ago. Patient underwent a colonoscopy 6 to 8 years ago. Patient denies chest pain. Patient denies fever. Patient denies cough. Patient denies shortness of breath. Patient has a history of diabetes, peripheral neuropathy, hypertension, gastroesophageal reflux disease, hyperlipidemia, COPD, osteoarthritis and has had a cardiac ablation in the past. Activities at Onset: none Quality: cramping, pressure Abdominal Pain Onset Location: generalized abdomen Pain Radiation: no radiation Severity of Pain-Max: moderate Severity of Pain-Current: moderate Modifying Factors: Improves With: vomiting. Worsens With: coughing Associated Symptoms: loss of appetite, nausea, vomiting, No chest pain, No diarrhea, No fever/chills, No shortness of breath Previous symptoms: no prior history, no recent treatment Allergies/Adverse Reactions: No Known Drug Allergies Allergy (Verified 11/08/23 10:54) Home Medications: Amlodipine Besylate 5 mg [Norvasc 5 mg] 10 mg PO DAILY 02/03/23 [History] Atorvastatin Calcium [Lipitor] 1 tab PO DAILY 02/03/23 [History] Empagliflozin [Jardiance] 1 tab PO DAILY 02/03/23 [History] Famotidine 1 tab PO DAILY 02/03/23 [History] Fluticasone Propionate [Flonase NASAL] 1 spray INTRANASAL DAILY 02/03/23 [History] Fluticasone/Umeclidin/Vilanter [Trelegy Ellipta 100-62.5-25] 1 puff PO DAILY 02/03/23 [History] Gabapentin [Neurontin] 1 cap PO HS 02/03/23 [History] Hydrochlorothiazide 25 mg [hydroDIURIL 25 MG] 1 tab PO DAILY 02/03/23 [History] Insulin Glargine [Lantus Insulin] 80 units SQ BIDWMEALS 02/03/23 [History] Insulin Lispro [Humalog] 30 unit SQ BIDWMEALS 02/03/23 [History] PANTOPRAZOLE 40 mg Tablet [Protonix 40MG Tablet] 1 tab PO DAILY 02/03/23 [History] Ropinirole HCl 1 tab PO HS 02/03/23 [History] Semaglutide [Ozempic] 0.5 mg SQ WEEKLY 02/03/23 [History] Spironolactone 25 mg [Aldactone 25 MG] 1 tab PO DAILY 02/03/23 [History] carvediloL [Carvedilol] 1 tab PO BID 02/03/23 [History] Gabapentin [Neurontin ] 400 mg PO BIDWMEALS 07/23/23 [History] HydrALAzine HCL 25 MG TAB [Apresoline 25 MG TABLET] 25 mg PO BID 07/23/23 [History] Metformin HCl 500 mg [Glucophage 500 MG] 500 mg PO BIDWM 07/23/23 [History] Torsemide 20 mg [Demadex 20 mg] 20 mg PO DAILY 07/23/23 [History] Amoxicillin 500 mg PO BID 11/08/23 [History] Hx Tetanus, Diphtheria Vaccination/Date Given: (unknown) Hx Influenza Vaccination/Date Given: Yes Hx Pneumococcal Vaccination/Date Given: Yes Travel Risk - International Travel Have you traveled outside of the country in past 3 weeks: No - Coronavirus Screening Are you exhibiting any of the following symptoms?: Yes Symptoms: Vomiting/Diarrhea - Vaccine Status Have you recieved a Covid-19 vaccination: Yes 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 - Vaccination Dates Date of 2cond Vaccination (if applicable): unknown - Review of Systems Constitutional: No Symptoms Eyes: No Symptoms Ears, Nose, & Throat: No Symptoms Respiratory: No Symptoms Cardiac: No Symptoms Abdominal/Gastrointestinal: Abdominal Pain, Nausea, Vomiting, Appetite Changes, No Diarrhea, No Constipation Genitourinary Symptoms: No Symptoms Musculoskeletal: No Symptoms Skin: No Symptoms Neurological: No Symptoms Psychological: No Symptoms Endocrine: No Symptoms Hematologic/Lymphatic: No Symptoms Immunological/Allergic: No Symptoms All Other Systems: Reviewed and Negative - Past Medical History Pertinent Past Medical History: Yes Neurological History: Peripheral Neuropathy, Other ENT History: No Pertinent History Cardiac History: Hypertension Respiratory History: COPD Endocrine Medical History: Diabetes Type II Musculoskeletal History: Osteoarthritis GI Medical History: No Pertinent History History: No Pertinent History Psycho-Social History: No Pertinent History Male Reproductive Disorders: No Pertinent History Other Medical History: SEVERE CONCUSSION WITH TBI, L ANKLE FRACTURE, MULTIPLE L AKLE SPRAINS A KID. - Past Surgical History Past Surgical History: Yes Neuro Surgical History: No Pertinent History Cardiac: Cardiac Catheterization Respiratory: No Pertinent History Gastrointestinal: No Pertinent History Genitourinary: No Pertinent History Musculoskeletal: No Pertinent History Male Surgical History: No Pertinent History Other Surgical History: ABLATION - Social History Smoking Status: Never smoker Exposure to second hand smoke: No Drug Use: none Patient Lives Alone: Yes - Nursing Vital Signs Nursing Vital Signs: Initial Vital Signs Blood Pressure 161/70 11/08/23 11:01 O2 Sat by Pulse Oximetry 93 L 11/08/23 11:01 Pain Scale Pain Intensity 9 - Physical Exam General Appearance: mild distress, alert, anxiety, obese Eye Exam: PERRL/EOMI, eyes nml inspection Ears, Nose, Throat Exam: normal ENT inspection, moist mucous membranes Neck Exam: normal inspection, non-tender, supple, full range of motion Respiratory Exam: normal breath sounds, lungs clear, airway intact, No chest tenderness, No respiratory distress Cardiovascular Exam: regular rate/rhythm, normal heart sounds, normal peripheral pulses Gastrointestinal/Abdomen Exam: soft, normal bowel sounds, tenderness (Diffuse to palpation), guarding (Mild diffuse to palpation), No rebound Rectal Exam: not done Back Exam: normal inspection, normal range of motion, No CVA tenderness, No vertebral tenderness Extremity Exam: normal inspection, normal range of motion, pelvis stable Neurologic Exam: alert, 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, cooperative, dental services director II-XII nml as tested, normal mood/affect, nml cerebellar function, nml station & gait, sensation nml Skin Exam: normal color, warm, dry Lymphatic Exam: No adenopathy SpO2 Interpretation: normal O2 Delivery: Room Air - Course Nursing assessment & vital signs reviewed: Yes Ordered Tests: Active Orders 24 hr Category Date Time Status IV Insertion STAT Care 11/08/23 11:16 Active ABDOMEN AND PELVIS W/0 CONTRAS [CT] Stat Exams 11/08/23 11:17 Completed AMYLASE Stat Lab 11/08/23 11:20 Completed BLOOD CULTURE Stat Lab 11/08/23 13:10 Received CBC W DIFF Stat Lab 11/08/23 11:20 Completed CMP Stat Lab 11/08/23 11:20 Completed LIPASE Stat Lab 11/08/23 11:20 Completed MONO SCREEN Stat Lab 11/08/23 Completed Manual Differential NC Stat Lab 11/08/23 11:20 Completed Medication Summary Discontinued Medications Generic Name Dose Route Start Last Admin Trade Name Freq PRN Reason Stop Dose Admin Hydromorphone HCl 1 mg 11/08/23 11:16 11/08/23 11:30 Hydromorphone 1 Mg/1ml Inj IV 11/08/23 11:17 1 mg STAT ONE Administration Hydromorphone HCl Confirm 11/08/23 11:28 Hydromorphone 1 Mg/1ml Inj Administered 11/08/23 11:29 Dose 1 mg .ROUTE .STK-MED ONE Sodium Chloride 1,000 mls @ 999 mls/hr 11/08/23 11:16 11/08/23 12:51 Sodium Chloride 0.9% 1000 Ml IV 11/08/23 12:16 Infused .Q1H1M STA Infusion Sodium Chloride Confirm 11/08/23 11:28 Sodium Chloride 0.9% 1000 Ml Administered 11/08/23 11:29 Dose 1,000 mls @ ud .ROUTE .STK-MED ONE Ondansetron HCl 4 mg 11/08/23 11:16 11/08/23 11:33 Ondansetron Hcl 4 Mg/2 Ml Vial IV 11/08/23 11:17 4 mg STAT ONE Administration Ondansetron HCl Confirm 11/08/23 11:28 Ondansetron Hcl 4 Mg/2 Ml Vial Administered 11/08/23 11:29 Dose 4 mg .ROUTE .STK-MED ONE Pantoprazole Sodium 40 mg 11/08/23 11:16 11/08/23 11:33 Pantoprazole 40 Mg Vial IV 11/08/23 11:17 40 mg STAT ONE Administration Pantoprazole Sodium Confirm 11/08/23 11:28 Pantoprazole 40 Mg Vial Administered 11/08/23 11:29 Dose 40 mg IV .STK-MED ONE Lab/Rad Data: Laboratory Result Diagrams 11/08/23 11:20 12/28/23 11:20 Laboratory Results 11/08/23 11/08/23 11/08/23 Range/Units Unknown 11:31 11:31 WBC (4.0-10.5) x10^3/uL RBC (4.1-5.6) x10^6/uL Hgb (12.5-18.0) g/dL Hct (42-50) % MCV (78-100) fL MCH (26-32) pg MCHC (32-36) g/dL RDW (11.5-14.0) % Plt Count (150-450) x10^3/uL MPV (7.5-11.0) fL Segmented Neutrophils (36.-66.) % Lymphocytes (Manual) (24-44) % Monocytes (Manual) (0.0-12.0) % Eosinophils (Manual) (0.00-3.0) % Toxic Granulation Platelet Estimate (NORMAL) RBC Morphology Anisocytosis Sodium (137-145) mmol/L Potassium (3.5-5.1) mmol/L Chloride (98-107) mmol/L Carbon Dioxide (22-30) mmol/L Anion Gap (5-15) MEQ/L BUN (9-20) mg/dL Creatinine (0.66-1.25) mg/dL Estimated GFR ML/MIN Glucose (74-106) mg/dL Calcium (8.4-10.2) mg/dL Total Bilirubin (0.2-1.3) mg/dL AST (17-59) U/L ALT (0-50) U/L Alkaline Phosphatase (38-126) U/L Serum Total Protein (6.3-8.2) g/dL Albumin (3.5-5.0) g/dL Amylase (30-110) U/L Lipase (23-300) U/L Urine Color YELLOW (YELLOW) Urine Appearance CLEAR (CLEAR) Urine pH 5.5 (5-6) Ur Specific [place] 1.010 (1.005-1.025) POC Urine Protein Conf NEGATIVE (Negative) Urine Ketones NEGATIVE (NEGATIVE) Urine Nitrite NEGATIVE (NEGATIVE) Urine Bilirubin NEGATIVE (NEGATIVE) Urine Urobilinogen 1 A (0-1) mg/dL Urine Leukocytes NEGATIVE (NEGATIVE) U Hyaline Cast (Auto) NONE SEEN (0-2) /LPF Urine RBC NEGATIVE (0-5) Skinny/ul Urine Microscopic RBC 0-2 (0-5) /HPF Urine Microscopic WBC 0-2 (0-5) /HPF Ur Epithelial Cells None Seen (None Seen) /HPF Urine Bacteria None Seen (None Seen) /HPF Urine Culture Reflexed NO (NO) Urine Glucose >=1000 A (NEGATIVE) mg/dL Monoscreen NEGATIVE (NEGATIVE) Influenza Type A Ag NEGATIVE (NEGATIVE) Influenza Type B Ag NEGATIVE (NEGATIVE) RSV (PCR) NEGATIVE (NEGATIVE) SARS-CoV-2 (PCR) NEGATIVE (NEGATIVE) 11/08/23 11/08/23 Range/Units 11:20 11:20 WBC 23.5 H (4.0-10.5) x10^3/uL RBC 5.62 H (4.1-5.6) x10^6/uL Hgb 16.3 (12.5-18.0) g/dL Hct 50.3 H (42-50) % MCV 89.5 (78-100) fL MCH 29.0 (26-32) pg MCHC 32.4 (32-36) g/dL RDW 15.0 H (11.5-14.0) % Plt Count 246 (150-450) x10^3/uL MPV 9.0 (7.5-11.0) fL Segmented Neutrophils 91 H (36.-66.) % Lymphocytes (Manual) 3 L (24-44) % Monocytes (Manual) 5 (0.0-12.0) % Eosinophils (Manual) 1 (0.00-3.0) % Toxic Granulation 1+ Platelet Estimate NORMAL (NORMAL) RBC Morphology ABNORMAL Anisocytosis 1+ Sodium 137 (137-145) mmol/L Potassium 3.9 (3.5-5.1) mmol/L Chloride 95 L (98-107) mmol/L Carbon Dioxide 32 H (22-30) mmol/L Anion Gap 13.5 (5-15) MEQ/L BUN 26 H (9-20) mg/dL Creatinine 0.95 (0.66-1.25) mg/dL Estimated GFR 88.8 ML/MIN Glucose 132 H (74-106) mg/dL Calcium 9.1 (8.4-10.2) mg/dL Total Bilirubin 0.70 (0.2-1.3) mg/dL AST 32 (17-59) U/L ALT 38 (0-50) U/L Alkaline Phosphatase 78 (38-126) U/L Serum Total Protein 8.1 (6.3-8.2) g/dL Albumin 4.5 (3.5-5.0) g/dL Amylase 70 (30-110) U/L Lipase 101 (23-300) U/L Urine Color (YELLOW) Urine Appearance (CLEAR) Urine pH (5-6) Ur Specific [place] (1.005-1.025) POC Urine Protein Conf (Negative) Urine Ketones (NEGATIVE) Urine Nitrite (NEGATIVE) Urine Bilirubin (NEGATIVE) Urine Urobilinogen (0-1) mg/dL Urine Leukocytes (NEGATIVE) U Hyaline Cast (Auto) (0-2) /LPF Urine RBC (0-5) Skinny/ul Urine Microscopic RBC (0-5) /HPF Urine Microscopic WBC (0-5) /HPF Ur Epithelial Cells (None Seen) /HPF Urine Bacteria (None Seen) /HPF Urine Culture Reflexed (NO) Urine Glucose (NEGATIVE) mg/dL Monoscreen (NEGATIVE) Influenza Type A Ag (NEGATIVE) Influenza Type B Ag (NEGATIVE) RSV (PCR) (NEGATIVE) SARS-CoV-2 (PCR) (NEGATIVE) - Progress Progress: improved, re-examined Progress Note: 11/08/23 11:34 Patient's medical issue is 1 of moderate complexity. The level complexity in the workup performed is based on review of the patient's past medical history, review of the patient's medication list, review the patient's drug allergy list, history of present illness and physical findings on examination. Workup in this patient includes placement of intravenous line, infusion of Dilaudid and Zofran intravenously, amylase, lipase, CBC, CMP, urinalysis, viral swabs, CT scan of the abdomen pelvis without contrast. 11/08/23 12:[address] scan of the abdomen pelvis without contrast was interpreted by the radiologist and I reviewed the impression. The impression reads mild diffuse fecal stasis. There is a fatty left inguinal hernia. There is no abdominal aortic aneurysm. There is arteriosclerotic disease of the vessels. Hepatic cyst versus hemangioma. There are bilateral renal cysts present. 11/08/23 13:45 I interpreted the patient's laboratory data results. Patient has a leukocytosis of significant value of 23.5. This is likely secondary to the vomiting episodes that he had this morning. There is no radiographic or other laboratory evidence of bacterial or viral infection. I had a discussion with this patient and we will mostly send a prescription of cefdinir to his pharmacy. I ordered a blood culture and the results of this will be back for 48 hours. A more detailed discussion provided more information. That is, the patient has chronic recurring vomiting episodes and he is on Zofran every 4 hours as needed. He does not have an emergent cause of his abdominal pain or vomiting issues from today. Therefore, we will discharge him to home after he receives the full liter of normal saline solution. Counseled pt/family regarding: lab results, diagnosis, need for follow-up Medical Desision Making - Diagnostic Testing Diagnostic test were ordered, analyzed, and reviewed by me: Yes Radiological Interpretation: Reviewed by me, Teleradiologist Report - Risk of complications The pt has a mod risk of morbidity or mortality based on: Need for prescription drug management - Departure Departure Disposition: Home Clinical Impression: Chronic vomiting, Abdominal pain, Leukocytosis Condition: Stable Critical Care Time: No Referrals: AKI DANG MD [Primary Care Provider] - Follow up/PCP as directed Additional Instructions: Drink plenty of clear liquids before advancing your diet. Continue using your Zofran as prescribed. Call your primary care provider and or your [place] stroenterologist today, 11/08/2023, to to arrange a follow-up appointment in the next 3 to 5 days. Avoid fatty greasy spicy foods. Prescriptions: Cefdinir 300 mg PO BID #14 cap
[2023-11-08 11:05] VITALS: PULSE 79; TEMP 97.7
[2023-11-08] MEDS ORDERED: Sodium Chloride 0.9% 1000 ML 1,000 ML IV STA (11:16)
[2023-11-08] MEDS ORDERED: PROTONIX 40 MG IV IV ONE ×2 (11:16→11:28)
[2023-11-08] MEDS ORDERED: Zofran 4 MG/2 ML VIAL IV ONE (11:16)
[2023-11-08] MEDS ORDERED: Hydromorphone 1 mg/ml Injection IV ONE (11:16)
[2023-11-08 11:28] LABS: Hematocrit 50.3 % (42-50); Hemoglobin 16.3 g/dL (12.5-18.0); Mean Cell Volume 89.5 fL (78-100); Mean Corpuscular Hgb Concent. 32.4 g/dL (32-36); Platelet Count 246 x10^3/uL (150-450); Red Blood Count 5.62 x10^6/uL (4.1-5.6); White Blood Count 23.5 x10^3/uL (4.0-10.5)
[2023-11-08] MEDS ORDERED: Hydromorphone 1 mg/ml Injection ONE (11:28)
[2023-11-08] MEDS ORDERED: Zofran 4 MG/2 ML VIAL ONE (11:28)
[2023-11-08] MEDS ORDERED: Sodium Chloride 0.9% 1000 ML 1,000 ML ONE (11:28)
[2023-11-08 11:43] LABS: ALBUMIN 4.5 g/dL (3.5-5.0); ANION GAP 13.5 MEQ/L (5-15); BILIRUBIN,TOTAL 0.7 mg/dL (0.2-1.3); Calcium 9.1 mg/dL (8.4-10.2); Creatinine 1 0.95 mg/dL (0.66-1.25); EST GLOMERULAR FILTRATION RATE 88.8 ML/MIN; Potassium 3.9 mmol/L (3.5-5.1); Total Protein 8.1 g/dL (6.3-8.2)
[2023-11-08 11:48] LABS: Eosinophil 1 % (0.00-3.0); Lymphocytes 3 % (24-44); Monocyte 5 % (0.0-12.0); Neutrophils 91 % (36.-66.); Platelet Estimate NORMAL (NORMAL); Total Cells Counted 100; Toxic Granulation 1+
[2023-11-08 11:49] LABS: ANISOCYTOSIS 1+
[2023-11-08 12:04] VITALS: RESP 16
[2023-11-08 12:06] LABS: Bacteria None Seen /HPF (None Seen); Epithelial Cells None Seen /HPF (None Seen); Hyaline Casts NONE SEEN /LPF (0-2); RBC 0-2 /HPF (0-5); WBC 0-2 /HPF (0-5)
[2023-11-08 12:14] LABS: Appearance CLEAR (CLEAR); Bilirubin NEGATIVE (NEGATIVE); Glucose >=1000 mg/dL (NEGATIVE); Ketones NEGATIVE (NEGATIVE); Ph 5.5 (5-6); RBC NEGATIVE Ery/ul (0-5)
[2023-11-08 12:15] LABS: ADD URINE CULTURE? NO (NO); Nitrite NEGATIVE (NEGATIVE); Protein,Urine Dip NEGATIVE (Negative); Urobilinogen 1 mg/dL (0-1)
--- NOTE | 2023-11-08 12:23 | XRAY ---
Indication: Intermittent abdomen pain 3 weeks. Multiple contiguous axial images obtained through the abdomen and pelvis without contrast. Comparison: None Lung bases clear of infiltrate and effusion. Heart not enlarged with prominent epicardiac fat. Noncontrasted stomach and bowel loops appear nonobstructed with normal appendix. Mild diffuse scattered colonic fecal debris throughout including rectum. Mild diffuse fatty liver. Posterior right lobe liver demonstrates 2 cm focus of hypoattenuation reported as cyst versus hemangioma on CT chest with contrast exam February 03, 2023. A few bilateral renal cysts, largest 4 cm right kidney. No free fluid/air. Remaining liver, gallbladder, pancreas, spleen, adrenal glands, kidneys, ureters, and bladder are unremarkable for noncontrast exam. Mild diffuse scattered aortoiliac calcifications without AAA. Osseous structures intact with mild/moderate degenerative changes throughout the thoracolumbar spine and mild degenerative changes both hips. Small fatty left inguinal hernia. Impression: 1. Mild diffuse fecal stasis. 2. Chronic findings including fatty liver, hepatic cyst versus hemangioma, bilateral renal cysts, arteriosclerotic disease, fatty left inguinal hernia, and chronic bony findings. 2. Remaining CT abdomen/pelvis without contrast exam is negative.
[2023-11-08 12:38] LABS: INFLUENZA A NEGATIVE (NEGATIVE); INFLUENZA B NEGATIVE (NEGATIVE); RESPIRATORY SYNCTIAL VIRUS NEGATIVE (NEGATIVE); SARS-CoV-2 Xpert Express NEGATIVE (NEGATIVE)
[2023-11-08 14:04] VITALS: BP 160/81; O2SAT 96
== END 2023-11-08 14:10 | disposition home or self-care (01) ==
LOC: ED 10:49
DX: R11.15 Cyclical vomiting syndrome unrelated to migraine (principal); R10.84 Generalized abdominal pain; D72.829 Elevated white blood cell count, unspecified; E11.42 Type 2 diabetes mellitus with diabetic polyneuropathy; I10 Essential (primary) hypertension; E78.5 Hyperlipidemia, unspecified; Z79.84 Long term (current) use of oral hypoglycemic drugs; Z79.4 Long term (current) use of insulin; Z79.85 Long-term (current) use of injectable non-insulin antidiabetic drugs; Z79.899 Other long term (current) drug therapy; Z20.828 Contact with and (suspected) exposure to other viral communicable diseases
CPT/HCPCS: 0241U; 36000; 36415; 74176; 80053; 81015; 82150; 83690; 85025; 86308; 87040; 96360; 96374; 96375; 99284; J1170; J2405

== ENCOUNTER 2024-09-30 12:42 | Emergency (ER) | payer MEDICARE ==
[2024-09-30 13:05] VITALS: TEMP 98.2
[2024-09-30] MEDS ORDERED: Sodium Chloride 0.9% 1000 ML 1,000 ML ONE (13:09)
[2024-09-30] MEDS ORDERED: Zofran 4 MG/2 ML VIAL ONE (13:09)
[2024-09-30] MEDS: Sodium Chloride 0.9% 1000 ML 1,000 ML IV SCH (13:11)
[2024-09-30] MEDS: Zofran 4 MG/2 ML VIAL IV ONE (13:11)
[2024-09-30 13:12] LABS: Absolute Neutrophil Ct (ANC) 6.62 x10^3/uL (1.78-5.38); BASOPHIL % 0.5 % (0.2-1.2); Basophil (Absolute #) 0.04 x10^3/uL (0.01-0.08); Eosinophil % 1.6 % (0.8-7.0); Eosinophil (Absolute #) 0.14 x10^3/uL (0.04-0.54); Hematocrit 44.1 % (40.1-51.0); Hemoglobin 14.6 g/dL (13.7-17.5); IMMATURE GRAN # 0.04 x10^3u/L (0.001-0.031); IMMATURE GRAN % 0.5 % (0.001-0.429); Lymphocytes % 11.5 % (21.8-53.1); Mean Corpuscular Hemoglobin 28.1 pg (25.7-32.2); Mean Corpuscular Hgb Concent. 33.1 g/dL (32.3-36.5); Mean Platelet Volume 8.9 fL (9.4-12.4); Monocyte (Absolute #) 0.87 x10^3/uL (0.30-0.82); Neutrophil % 75.9 % (34.0-67.9); Platelet Count 196 x10^3/uL (163-337); Red Blood Count 5.19 x10^6/uL (4.63-6.08); Red Cell Distribution Width 17.4 % (11.6-14.4); White Blood Count 8.7 x10^3/uL (4.23-9.07)
[2024-09-30 13:25] LABS: ALBUMIN 4.5 g/dL (3.5-5.0); ANION GAP 16.5 MEQ/L (5-15); BILIRUBIN,TOTAL 0.7 mg/dL (0.2-1.3); Calcium 9.4 mg/dL (8.4-10.2); Creatinine 1 0.73 mg/dL (0.66-1.25); EST GLOMERULAR FILTRATION RATE 100.3 ML/MIN; Potassium 4.6 mmol/L (3.5-5.1); Total Protein 7.5 g/dL (6.3-8.2)
--- NOTE | 2024-09-30 14:15 | ERPHSYRPT ---
- History of Present Illness Time Seen by Provider: 09/30/24 13:10 Historian: patient Exam Limitations: no limitations Patient Subjective Stated Complaint: Abdominal pain Triage Nursing Assessment: Patient brought back to ED per w/c and transferred self to bed. Patient A+O X 3. Patient's skin flushed, cool and clammy. Patient complains of mid abdominal pain 4/10 that started yesterday that is getting worse today. Patient complains of nausea, but denies vomiting or diarrhea. Patient states Sunday he moved to a different apartment and the water has been smelling really bad. Patient states he has cooked with the water and now he is having abominal pain and nausea. Physician History: 64-year-old male diabetic presents to our ED for evaluation of nausea and abdominal pain. Pain described as an ache that is periumbilical. No trauma no fever. Patient states he recently moved to a new apartment. Patient states the water has a foul odor and is attributing his symptoms to the water. No other symptomology. No rash no trauma no diarrhea. Symptoms are constant. Symptoms are moderate in intensity. No specific worsening improving factors. Patient otherwise feels well he voices no other complaints or concerns at this time. Timing/Duration: today Activities at Onset: none Quality: aching Abdominal Pain Onset Location: periumbilical Pain Radiation: no radiation Severity of Pain-Max: moderate Severity of Pain-Current: mild Modifying Factors: Improves With: palpation Associated Symptoms: nausea Previous symptoms: no prior history Allergies/Adverse Reactions: No Known Drug Allergies Allergy (Verified 09/30/24 12:53) Home Medications: Amlodipine Besylate 5 mg [Norvasc 5 mg] 10 mg PO DAILY 02/03/23 [History] Atorvastatin Calcium [Lipitor] 1 tab PO DAILY 02/03/23 [History] Empagliflozin [Jardiance] 1 tab PO DAILY 02/03/23 [History] Famotidine 1 tab PO DAILY 02/03/23 [History] Fluticasone Propionate [Flonase NASAL] 1 spray INTRANASAL DAILY 02/03/23 [History] Fluticasone/Umeclidin/Vilanter [Trelegy Ellipta 100-62.5-25] 1 puff PO DAILY 02/03/23 [History] Gabapentin [Neurontin] 1 cap PO HS 02/03/23 [History] Hydrochlorothiazide 25 mg [hydroDIURIL 25 MG] 1 tab PO DAILY 02/03/23 [History] Insulin Glargine [Lantus Insulin] 80 units SQ BIDWMEALS 02/03/23 [History] Insulin Lispro [Humalog] 30 unit SQ BIDWMEALS 02/03/23 [History] PANTOPRAZOLE 40 mg Tablet [Protonix 40MG Tablet] 1 tab PO DAILY 02/03/23 [History] Ropinirole HCl 1 tab PO HS 02/03/23 [History] Semaglutide [Ozempic] 0.5 mg SQ WEEKLY 02/03/23 [History] Spironolactone 25 mg [Aldactone 25 MG] 1 tab PO DAILY 02/03/23 [History] carvediloL [Carvedilol] 1 tab PO BID 02/03/23 [History] Gabapentin [Neurontin ] 400 mg PO BIDWMEALS 07/23/23 [History] HydrALAzine HCL 25 MG TAB [Apresoline 25 MG TABLET] 25 mg PO BID 07/23/23 [History] Metformin HCl 500 mg [Glucophage 500 MG] 500 mg PO BIDWM 07/23/23 [History] Torsemide 20 mg [Demadex 20 mg] 20 mg PO DAILY 07/23/23 [History] Amoxicillin 500 mg PO BID 11/08/23 [History] Hx Tetanus, Diphtheria Vaccination/Date Given: (unknown) Hx Influenza Vaccination/Date Given: No Hx Pneumococcal Vaccination/Date Given: No Immunizations Up to Date: Yes Travel Risk - International Travel Have you traveled outside of the country in past 3 weeks: No - Emerging Infectious Disease Are you exhibiting symptoms associated with any current EIDs: No - Review of Systems Constitutional: No Symptoms, No Fever, No Chills Eyes: No Symptoms Ears, Nose, & Throat: No Symptoms Respiratory: No Symptoms, No Cough, No Dyspnea Cardiac: No Symptoms, No Chest Pain, No Edema, No Syncope Abdominal/Gastrointestinal: No Symptoms, No Abdominal Pain, No Nausea, No Vomiting, No Diarrhea Genitourinary Symptoms: No Symptoms, No Dysuria Musculoskeletal: No Symptoms, No Back Pain, No Neck Pain Skin: No Symptoms, No Rash Neurological: No Symptoms, No Dizziness, No Focal Weakness, No Sensory Changes Psychological: No Symptoms Endocrine: No Symptoms Hematologic/Lymphatic: No Symptoms Immunological/Allergic: No Symptoms All Other Systems: Reviewed and Negative - Past Medical History Pertinent Past Medical History: Yes Neurological History: Peripheral Neuropathy, Other ENT History: No Pertinent History Cardiac History: Hypertension Respiratory History: COPD Endocrine Medical History: Diabetes Type II Musculoskeletal History: Osteoarthritis GI Medical History: No Pertinent History History: No Pertinent History Psycho-Social History: No Pertinent History Male Reproductive Disorders: No Pertinent History Other Medical History: SEVERE CONCUSSION WITH TBI, L ANKLE FRACTURE, MULTIPLE L AKLE SPRAINS A KID. - Past Surgical History Past Surgical History: Yes Neuro Surgical History: No Pertinent History Cardiac: Cardiac Catheterization Respiratory: No Pertinent History Gastrointestinal: No Pertinent History Genitourinary: No Pertinent History Musculoskeletal: No Pertinent History Male Surgical History: No Pertinent History Other Surgical History: ABLATION - Social History Smoking Status: Never smoker Exposure to second hand smoke: No Drug Use: none Patient Lives Alone: Yes - Social Determinants of Health Will the patient participate in the screening: Yes Do you worry about a steady place to live?: No Do you have any problems with any of the following?: No known problems In the past 12 months,have you had to go without utilities?: No Transportation Issues: No Has anyone in your support network made you feel unsafe?: No Have you or anyone in your house had to go without enough: No - Nursing Vital Signs Nursing Vital Signs: Initial Vital Signs O2 Sat by Pulse Oximetry 97 09/30/24 12:52 Pain Scale Pain Intensity 2 - Physical Exam General Appearance: no apparent distress, alert Eye Exam: PERRL/EOMI, eyes nml inspection Ears, Nose, Throat Exam: normal ENT inspection, pharynx normal, moist mucous membranes Neck Exam: normal inspection, non-tender, supple, full range of motion Respiratory Exam: normal breath sounds, lungs clear, airway intact, No respiratory distress Cardiovascular Exam: regular rate/rhythm, normal heart sounds Gastrointestinal/Abdomen Exam: soft, tenderness, other (Periumbilical tenderness), No mass Back Exam: normal inspection, normal range of motion, No CVA tenderness, No vertebral tenderness Extremity Exam: normal inspection, normal range of motion, pelvis stable Neurologic Exam: alert, 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, cooperative, normal mood/affect, sensation nml, No motor deficits Skin Exam: normal color, warm, dry SpO2 Interpretation: normal SpO2: 97 O2 Delivery: Room Air - Course Nursing assessment & vital signs reviewed: Yes EKG Interpreted by Me: RATE (73), Sinus Rhythm, NORMAL AXIS, NORMAL INTERVALS, Left Bundle Branch Block - CT Exams Abdomen/Pelvis CT Interpretation: Tele-radiologist Report (Fatty liver, bilateral renal cysts, fatty left inguinal hernia) Ordered Tests: Active Orders 24 hr Category Date Time Status IV Insertion STAT Care 09/30/24 13:06 Active POCT Glucose Check STAT Care 09/30/24 12:59 Active ABDOMEN AND PELVIS W/0 CONTRAS [CT] Stat Exams 09/30/24 13:06 Completed CBC W DIFF Stat Lab 09/30/24 13:00 Completed CMP Stat Lab 09/30/24 13:00 Completed CULTURE,URINE Stat Lab 09/30/24 14:52 Received LIPASE Stat Lab 09/30/24 13:00 Completed POCT GLUCOSE Stat Lab 09/30/24 12:58 Completed TROPONIN Q4H Lab 09/30/24 13:00 Completed TROPONIN Q4H Lab 09/30/24 17:15 Ordered TROPONIN Q4H Lab 09/30/24 21:15 Ordered UA W/RFX UR CULTURE Stat Lab 09/30/24 14:52 Completed Medication Summary Generic Name Dose Route Start Last Admin Trade Name Freq PRN Reason Stop Dose Admin Sodium Chloride 1,000 mls @ 100 mls/hr 09/30/24 13:15 09/30/24 13:11 Sodium Chloride 0.9% 1000 Ml IV 10/30/24 13:14 100 mls/hr .Q10H ALVAREZ Administration Discontinued Medications Generic Name Dose Route Start Last Admin Trade Name Freq PRN Reason Stop Dose Admin Ondansetron HCl 4 mg 09/30/24 13:08 09/30/24 13:11 Ondansetron Hcl 4 Mg/2 Ml Vial IV 09/30/24 13:09 4 mg STAT ONE Administration Ondansetron HCl Confirm 09/30/24 13:09 Ondansetron Hcl 4 Mg/2 Ml Vial Administered 09/30/24 13:10 Dose 4 mg .ROUTE .[facility] ONE Lab/Rad Data: Laboratory Result Diagrams 09/30/24 13:00 09/30/24 13:00 Laboratory Results 09/30/24 09/30/24 09/30/24 Range/Units 14:52 13:00 13:00 WBC (4.23-9.07) x10^3/uL RBC (4.63-6.08) x10^6/uL Hgb (13.7-17.5) g/dL Hct (40.1-51.0) % MCV (79.0-92.2) fL MCH (25.7-32.2) pg MCHC (32.3-36.5) g/dL RDW (11.6-14.4) % Plt Count (163-337) x10^3/uL MPV (9.4-12.4) fL Gran % (34.0-67.9) % Immature Gran % (Auto) (0.001-0.429) % Nucleat RBC Rel Count (0.00-0.2) % Eos # (Auto) (0.04-0.54) x10^3/uL Immature Gran # (Auto) (0.001-0.031) x10^3u/L Absolute Lymphs (auto) (1.32-3.57) x10^3/uL Absolute Monos (auto) (0.30-0.82) x10^3/uL Absolute Nucleated RBC (0.00-0.012) x10^3u/L Lymphocytes % (21.8-53.1) % Monocytes % (5.3-12.2) % Eosinophils % (0.8-7.0) % Basophils % (0.2-1.2) % Absolute Granulocytes (1.78-5.38) x10^3/uL Basophils # (0.01-0.08) x10^3/uL Sodium 141 (135-145) mmol/L Potassium 4.6 (3.5-5.1) mmol/L Chloride 107 (98-107) mmol/L Carbon Dioxide 21 L (22-30) mmol/L Anion Gap 16.5 H (5-15) MEQ/L BUN 20 (9-20) mg/dL Creatinine 0.73 (0.66-1.25) mg/dL Estimated GFR 100.3 ML/MIN Glucose 212 H (74-106) mg/dL POC Glucometer (74 to 106) mg/dL Calcium 9.4 (8.4-10.2) mg/dL Total Bilirubin 0.70 (0.2-1.3) mg/dL AST 37 (17-59) U/L ALT 39 (0-50) U/L Alkaline Phosphatase 74 (38-126) U/L Troponin I < 0.012 (0.000-0.033) ng/mL Serum Total Protein 7.5 (6.3-8.2) g/dL Albumin 4.5 (3.5-5.0) g/dL Lipase 66 (23-300) U/L Urine Color Yellow (Yellow) Urine Appearance Clear (Clear) Urine pH 5.0 (4.6-8.0) Ur Specific [place] >=1.030 A (1.005-1.030) Urine Protein Trace A (Negative) Urine Glucose (UA) >=1000 A (Negative) mg/dL Urine Ketones Trace A (Negative) Urine Blood Trace (Negative) Urine Nitrite Negative (Negative) Urine Bilirubin Negative (Negative) Urine Urobilinogen 0.2 (0.2) mg/dL Ur Leukocyte Esterase Negative (Negative) U Hyaline Cast (Auto) NONE SEEN (0-2) /LPF Urine Microscopic RBC 0-2 (0-5) /HPF Urine Microscopic WBC 0-2 (0-5) /HPF Ur Epithelial Cells None Seen (None Seen) /HPF Urine Bacteria None Seen (None Seen) /HPF Urine Culture Reflexed NO (NO) 09/30/24 09/30/24 Range/Units 13:00 12:58 WBC 8.7 (4.23-9.07) x10^3/uL RBC 5.19 (4.63-6.08) x10^6/uL Hgb 14.6 (13.7-17.5) g/dL Hct 44.1 (40.1-51.0) % MCV 85.0 (79.0-92.2) fL MCH 28.1 (25.7-32.2) pg MCHC 33.1 (32.3-36.5) g/dL RDW 17.4 H (11.6-14.4) % Plt Count 196 (163-337) x10^3/uL MPV 8.9 L (9.4-12.4) fL Gran % 75.9 H (34.0-67.9) % Immature Gran % (Auto) 0.5 H (0.001-0.429) % Nucleat RBC Rel Count 0.0 (0.00-0.2) % Eos # (Auto) 0.14 (0.04-0.54) x10^3/uL Immature Gran # (Auto) 0.04 H (0.001-0.031) x10^3u/L Absolute Lymphs (auto) 1.00 L (1.32-3.57) x10^3/uL Absolute Monos (auto) 0.87 H (0.30-0.82) x10^3/uL Absolute Nucleated RBC 0.00 (0.00-0.012) x10^3u/L Lymphocytes % 11.5 L (21.8-53.1) % Monocytes % 10.0 (5.3-12.2) % Eosinophils % 1.6 (0.8-7.0) % Basophils % 0.5 (0.2-1.2) % Absolute Granulocytes 6.62 H (1.78-5.38) x10^3/uL Basophils # 0.04 (0.01-0.08) x10^3/uL Sodium (135-145) mmol/L Potassium (3.5-5.1) mmol/L Chloride (98-107) mmol/L Carbon Dioxide (22-30) mmol/L Anion Gap (5-15) MEQ/L BUN (9-20) mg/dL Creatinine (0.66-1.25) mg/dL Estimated GFR ML/MIN Glucose (74-106) mg/dL POC Glucometer 218 H (74 to 106) mg/dL Calcium (8.4-10.2) mg/dL Total Bilirubin (0.2-1.3) mg/dL AST (17-59) U/L ALT (0-50) U/L Alkaline Phosphatase (38-126) U/L Troponin I (0.000-0.033) ng/mL Serum Total Protein (6.3-8.2) g/dL Albumin (3.5-5.0) g/dL Lipase (23-300) U/L Urine Color (Yellow) Urine Appearance (Clear) Urine pH (4.6-8.0) Ur Specific [place] (1.005-1.030) Urine Protein (Negative) Urine Glucose (UA) (Negative) mg/dL Urine Ketones (Negative) Urine Blood (Negative) Urine Nitrite (Negative) Urine Bilirubin (Negative) Urine Urobilinogen (0.2) mg/dL Ur Leukocyte Esterase (Negative) U Hyaline Cast (Auto) (0-2) /LPF Urine Microscopic RBC (0-5) /HPF Urine Microscopic WBC (0-5) /HPF Ur Epithelial Cells (None Seen) /HPF Urine Bacteria (None Seen) /HPF Urine Culture Reflexed (NO) - Progress Progress: improved Progress Note: Patient reassessed. No active pain at this time. Nausea resolved after administration of Zofran. IV fluids infusing. Laboratory workup essentially nonremarkable. No leukocytosis. CT abdomen pelvis negative for acute findings. Fatty liver, bilateral renal cyst and left inguinal hernia observed. Patient has no testicular or penile pain. UA negative for UTI. No indication for further workup. Patient resting comfortably. Patient tolerating p.o. Patient agrees to follow-up with his primary care doctor within 48 hours for reevaluation. Portions of this note were created with voice recognition technology. There may be grammatical, spelling, punctuation or sound alike errors Complexity problem addressed is moderate acute complicated. No critical care time. Complex of data reviewed and analyzed is moderate. Test ordered chest reviewed results analyzed and correlated clinically with history and physical exam. Risk of complication and or risk of morbidity/mortality of patient management is low. Vital stable. Time spent to discharge patient is approximately 15 minutes. Plan of care established for shared decision making. No social determinants of health present to impede follow-up. Portions of this note were created with voice recognition technology. There may be grammatical, spelling, punctuation or sound alike errors 09/30/24 14:50 09/30/24 15:25 Counseled pt/family regarding: lab results, diagnosis, need for follow-up, rad results - Departure Departure Disposition: Home Clinical Impression: Abdominal pain, Nausea Condition: Stable Critical Care Time: No Referrals: SEBASTIEN UGARTE I. [employer] [Primary Care Provider] - Follow up/PCP as directed Additional Instructions: Discharge/Care Plan JIM STRICKLAND was seen on 09/30/24 in the Emergency Room. The patient was counseled regarding Diagnosis,Lab results, Imaging studies, need for follow up and when to return to the Emergency Room. Prescriptions given: Discharge Note I have spoken with the patient and/or caregivers. I have explained the patient's condition, diagnosis and treatment plan based on the information available to me at this time. I have answered the patient's and/or caregiver's questions and addressed any concerns. The patient and/or caregivers have as good understanding of the patient's diagnosis, condition and treatment plan as can be expected at this point. The vital signs have been stable. The patient's condition is stable and appropriate for discharge from the emergency department. The patient will pursue further outpatient evaluation with the primary care physician or other designated or consulting physician as outlined in the discharge instructions. The patient and/or caregivers are agreeable to this plan of care and follow-up instructions have been explained in detail. The patient and/or caregivers have received these instruction. The patient/and or caregivers are aware that any significant change in condition or worsening of symptoms should prompt an immediate return to this or the closest emergency department or call 911.
--- NOTE | 2024-09-30 14:38 | XRAY ---
Indication: Nausea. Pain. Multiple contiguous axial images obtained through the abdomen and pelvis without contrast. Comparison: November 08, 2023 Lung bases demonstrates minimal dependent atelectasis. No infiltrate or effusion. Heart not enlarged again with prominent epicardiac fat. Noncontrasted stomach and bowel loops appear nonobstructed again with normal appendix. Stable mild diffuse fatty liver, small posterior right lobe hepatic cyst versus hemangioma, and bilateral renal cysts. No free fluid/air. Remaining liver, gallbladder, pancreas, spleen, adrenal glands, kidneys, ureters, and bladder are unremarkable for noncontrast exam. There remains mild diffuse aortoiliac calcifications without AAA. Osseous structures intact again with mild/moderate degenerative changes throughout the lumbar spine and both hips. Stable small fatty left inguinal hernia. Impression: Again chronic findings including fatty liver, hepatic cyst versus hemangioma, bilateral renal cysts, arteriosclerotic disease, fatty left inguinal hernia, and chronic bony findings. No new/acute findings on this noncontrast exam.
[2024-09-30 15:10] LABS: Appearance Clear (Clear); Bacteria None Seen /HPF (None Seen); Bilirubin Negative (Negative); Blood Trace (Negative); Epithelial Cells None Seen /HPF (None Seen); Glucose, Urine >=1000 mg/dL (Negative); Hyaline Casts NONE SEEN /LPF (0-2); Ketones Trace (Negative); Leukocyte Esterase Negative (Negative); Nitrite Negative (Negative); Protein,Urine Dip Trace (Negative); RBC 0-2 /HPF (0-5); Specific Gravity >=1.030 (1.005-1.030); Urobilinogen 0.2 mg/dL (0.2); WBC 0-2 /HPF (0-5)
[2024-09-30 15:50] VITALS: BP 174/84; PULSE 78; RESP 23; O2SAT 96
== END 2024-09-30 15:51 | disposition home or self-care (01) ==
LOC: ED 12:42
DX: R10.9 Unspecified abdominal pain (principal); R11.0 Nausea; Z79.899 Other long term (current) drug therapy
CPT/HCPCS: 36415; 74176; 80053; 81001; 82947; 83690; 84484; 85025; 87086; 96374; 99284; J2405

== ENCOUNTER 2024-09-30 19:40 | Observation (INO) | payer MEDICARE ==
--- NOTE | 2024-09-30 20:37 | ERPHSYRPT ---
- History of Present Illness Time Seen by Provider: 09/30/24 20:30 Source: patient Exam Limitations: no limitations Patient Subjective Stated Complaint: pt states he has been having a lot of anxiety, and today describes as a feeling of immense uneasiness. Triage Nursing Assessment: pt alert and oriented, answers questions approp. pt restless in bed. pt ambulates into room with steady gait noted. pt resltess in bed. tearful at times. Physician History: 64-year-old male presents to emergency department for evaluation of anxiety. Patient was in our ED approximately 3 to 4 hours prior. Patient will be worked up for abdominal pain. At that time patient voiced that he was concerned with his living situation particularly because he felt as though his water was contaminated in his new apartment. Patient was discharged home. Patient return to his apartment. Patient anxiety level increased. Patient states that he cannot live in the apartment with contaminated water that has already made him sick. Patient is tearful. Patient states that he is considering custodial or assisted living placement. He just does not want to live alone. Patient otherwise feels well. No active pain. Patient voices no other complaints or concerns at this time. Portions of this note were created with voice recognition technology. There may be grammatical, spelling, punctuation or sound alike errors Timing/Duration: today Severity: moderate Modifying Factors: Improves With: nothing Associated Symptoms: denies symptoms Allergies/Adverse Reactions: No Known Drug Allergies Allergy (Verified 09/30/24 20:27) Home Medications: Amlodipine Besylate 5 mg [Norvasc 5 mg] 10 mg PO DAILY 02/03/23 [History] Atorvastatin Calcium [Lipitor] 1 tab PO DAILY 02/03/23 [History] Empagliflozin [Jardiance] 1 tab PO DAILY 02/03/23 [History] Famotidine 1 tab PO DAILY 02/03/23 [History] Fluticasone Propionate [Flonase NASAL] 1 spray INTRANASAL DAILY 02/03/23 [History] Fluticasone/Umeclidin/Vilanter [Trelegy Ellipta 100-62.5-25] 1 puff PO DAILY 02/03/23 [History] Gabapentin [Neurontin] 1 cap PO HS 02/03/23 [History] Hydrochlorothiazide 25 mg [hydroDIURIL 25 MG] 1 tab PO DAILY 02/03/23 [History] Insulin Glargine [Lantus Insulin] 80 units SQ BIDWMEALS 02/03/23 [History] Insulin Lispro [Humalog] 30 unit SQ BIDWMEALS 02/03/23 [History] PANTOPRAZOLE 40 mg Tablet [Protonix 40MG Tablet] 1 tab PO DAILY 02/03/23 [History] Ropinirole HCl 1 tab PO HS 02/03/23 [History] Semaglutide [Ozempic] 0.5 mg SQ WEEKLY 02/03/23 [History] Spironolactone 25 mg [Aldactone 25 MG] 1 tab PO DAILY 02/03/23 [History] carvediloL [Carvedilol] 1 tab PO BID 02/03/23 [History] Gabapentin [Neurontin ] 400 mg PO BIDWMEALS 07/23/23 [History] HydrALAzine HCL 25 MG TAB [Apresoline 25 MG TABLET] 25 mg PO BID 07/23/23 [History] Metformin HCl 500 mg [Glucophage 500 MG] 500 mg PO BIDWM 07/23/23 [History] Torsemide 20 mg [Demadex 20 mg] 20 mg PO DAILY 07/23/23 [History] Amoxicillin 500 mg PO BID 11/08/23 [History] Hx Tetanus, Diphtheria Vaccination/Date Given: (unknown) Hx Influenza Vaccination/Date Given: No Hx Pneumococcal Vaccination/Date Given: No Immunizations Up to Date: No Travel Risk - International Travel Have you traveled outside of the country in past 3 weeks: No - Emerging Infectious Disease Are you exhibiting symptoms associated with any current EIDs: Yes Symptoms: Abdominal Pain, Cough: New Onset, Headaches/Body Aches/ - Review of Systems Constitutional: No Symptoms, No Fever, No Chills Eyes: No Symptoms Ears, Nose, & Throat: No Symptoms Respiratory: No Symptoms, No Cough, No Dyspnea Cardiac: No Symptoms, No Chest Pain, No Edema, No Syncope Abdominal/Gastrointestinal: No Symptoms, No Abdominal Pain, No Nausea, No Vomiting, No Diarrhea Genitourinary Symptoms: No Symptoms, No Dysuria Musculoskeletal: No Symptoms, No Back Pain, No Neck Pain Skin: No Symptoms, No Rash Neurological: No Symptoms, No Dizziness, No Focal Weakness, No Sensory Changes Psychological: No Symptoms Endocrine: No Symptoms Hematologic/Lymphatic: No Symptoms Immunological/Allergic: No Symptoms All Other Systems: Reviewed and Negative - Past Medical History Pertinent Past Medical History: Yes Neurological History: Peripheral Neuropathy, Other ENT History: No Pertinent History Cardiac History: Hypertension Respiratory History: COPD Endocrine Medical History: Diabetes Type II Musculoskeletal History: Osteoarthritis GI Medical History: No Pertinent History History: No Pertinent History Psycho-Social History: No Pertinent History Male Reproductive Disorders: No Pertinent History Other Medical History: SEVERE CONCUSSION WITH TBI, L ANKLE FRACTURE, MULTIPLE L AKLE SPRAINS A KID. - Past Surgical History Past Surgical History: Yes Neuro Surgical History: No Pertinent History Cardiac: Cardiac Catheterization Respiratory: No Pertinent History Gastrointestinal: No Pertinent History Genitourinary: No Pertinent History Musculoskeletal: No Pertinent History Male Surgical History: No Pertinent History Other Surgical History: ABLATION - Social History Smoking Status: Never smoker Exposure to second hand smoke: No Drug Use: none Patient Lives Alone: Yes - Social Determinants of Health Will the patient participate in the screening: Yes Do you worry about a steady place to live?: No Do you have any problems with any of the following?: Other In the past 12 months,have you had to go without utilities?: No Transportation Issues: No Has anyone in your support network made you feel unsafe?: No Have you or anyone in your house had to go without enough: No Comment: pt states that the water in his appartment smells like rotten eggs and is bad - Nursing Vital Signs Nursing Vital Signs: Initial Vital Signs Pulse Rate 86 09/30/24 20:09 Respiratory Rate 18 09/30/24 20:09 Blood Pressure 183/78 09/30/24 20:09 O2 Sat by Pulse Oximetry 97 09/30/24 20:09 Pain Scale Pain Intensity 6 - Physical Exam General Appearance: no apparent distress, alert Eye Exam: PERRL/EOMI, eyes nml inspection Ears, Nose, Throat Exam: normal ENT inspection, pharynx normal, moist mucous membranes Neck Exam: normal inspection, non-tender, supple, full range of motion Respiratory Exam: normal breath sounds, lungs clear, No respiratory distress Cardiovascular Exam: regular rate/rhythm, normal heart sounds, normal peripheral pulses Gastrointestinal/Abdomen Exam: soft, normal bowel sounds, No tenderness, No mass Back Exam: normal inspection, normal range of motion, No CVA tenderness, No vertebral tenderness Extremity Exam: normal inspection, normal range of motion, pelvis stable Neurologic Exam: alert, 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, cooperative, normal mood/affect, sensation nml, No motor deficits Skin Exam: normal color, warm, dry, No rash Lymphatic Exam: No adenopathy SpO2 Interpretation: normal SpO2: 97 O2 Delivery: Room Air - Course Nursing assessment & vital signs reviewed: Yes Ordered Tests: Active Orders 24 hr Category Date Time Status ACO SDOH Referral ONCE Cons 09/30/24 20:27 Active Transfer Order Routine Transfer 09/30/24 Ordered - Progress Progress: improved Progress Note: Patient 64-year-old male presents to our ED for anxiety. Patient concerned with his living situation at home. Patient recently moved into a new apartment which what he believes has contaminated water. Patient does not want to return to the apartment. Patient was in our ED earlier with abdominal pain and discomfort. Patient attributed his abdominal discomfort to the contaminated water although our laboratory and imaging study in our ED turned up negative. Patient now requesting hospitalization/custodial or assisted living placement. Patient will be admitted primarily for social reasons/placement. Plan of care discussed with patient. He agrees to admission at [facility] for further evaluation and treatment. Portions of this note were created with voice recognition technology. There may be grammatical, spelling, punctuation or sound alike errors Complexity of problem addressed is moderate acute complicated. No critical care time. Complex of data reviewed and analyzed is none. No specialized testing ordered. Diagnosis made based on history and physical exam. Risk of complication and or risk of morbidity/mortality of patient management is high. Vital stable. Time spent admit patient approximately 15 minutes. Plan of care established for shared decision making. No social determinants of health present to impede follow-up. Case discussed with hospitalist who accepts admission to observation at approximately 8:47 PM. Portions of this note were created with voice recognition technology. There may be grammatical, spelling, punctuation or sound alike errors 09/30/24 20:51 Counseled pt/family regarding: diagnosis - Departure Departure Disposition: Home Clinical Impression: Anxiety, Home help needed Condition: Stable Critical Care Time: No Referrals: UGARTE,SEBASTIEN I., [employer] [Primary Care Provider] - Follow up/PCP as directed Additional Instructions: Discharge/Care Plan JIM STRICKLAND was seen on 09/30/24 in the Emergency Room. The patient was counseled regarding Diagnosis,Lab results, Imaging studies, need for follow up and when to return to the Emergency Room. Prescriptions given: Discharge Note I have spoken with the patient and/or caregivers. I have explained the patient's condition, diagnosis and treatment plan based on the information available to me at this time. I have answered the patient's and/or caregiver's questions and addressed any concerns. The patient and/or caregivers have as good understanding of the patient's diagnosis, condition and treatment plan as can be expected at this point. The vital signs have been stable. The patient's condition is stable and appropriate for discharge from the emergency department. The patient will pursue further outpatient evaluation with the primary care physician or other designated or consulting physician as outlined in the discharge instructions. The patient and/or caregivers are agreeable to this plan of care and follow-up instructions have been explained in detail. The patient and/or caregivers have received these instruction. The patient/and or caregivers are aware that any significant change in condition or worsening of symptoms should prompt an immediate return to this or the closest emergency department or call 911.
--- NOTE | 2024-09-30 21:32 | PCM.HP ---
<SALOME CAMPO - Last Filed: 09/30/24 21:40> History of Present Illness - Chief Complaint History of Present Illness: is a 64 year old male. Medications & Allergies Home Medications: Home Medication List Amlodipine Besylate 5 mg [Norvasc 5 mg] 10 mg PO DAILY 02/03/23 [History Confirmed 09/30/24] Atorvastatin Calcium [Lipitor] 1 tab PO DAILY 02/03/23 [History Confirmed 09/30/24] Empagliflozin [Jardiance] 1 tab PO DAILY 02/03/23 [History Confirmed 09/30/24] Fluticasone Propionate [Flonase NASAL] 1 spray INTRANASAL DAILY PRN 02/03/23 [History Confirmed 09/30/24] Fluticasone/Umeclidin/Vilanter [Trelegy Ellipta 100-62.5-25] 1 puff PO DAILY 02/03/23 [History Confirmed 09/30/24] Gabapentin [Neurontin] 1 cap PO BID 02/03/23 [History Confirmed 09/30/24] Hydrochlorothiazide 25 mg [hydroDIURIL 25 MG] 1 tab PO DAILY 02/03/23 [History Confirmed 09/30/24] Insulin Glargine [Lantus Insulin] 80 units SQ BIDWMEALS 02/03/23 [History Confirmed 09/30/24] Insulin Lispro [Humalog] 30 unit SQ BIDWMEALS 02/03/23 [History Confirmed 11/08/23] PANTOPRAZOLE 40 mg Tablet [Protonix 40MG Tablet] 1 tab PO DAILY 02/03/23 [History Confirmed 09/30/24] Ropinirole HCl 1 tab PO HS 02/03/23 [History Confirmed 09/30/24] Semaglutide [Ozempic] 0.5 mg SQ WEEKLY 02/03/23 [History Confirmed 11/08/23] Spironolactone 25 mg [Aldactone 25 MG] 1 tab PO DAILY 02/03/23 [History Confirmed 09/30/24] carvediloL [Carvedilol] 1 tab PO BID 02/03/23 [History Confirmed 09/30/24] Gabapentin [Neurontin ] 800 mg PO HS 07/23/23 [History Confirmed 09/30/24] HydrALAzine HCL 25 MG TAB [Apresoline 25 MG TABLET] 25 mg PO BID 07/23/23 [History Confirmed 09/30/24] Metformin HCl 500 mg [Glucophage 500 MG] 500 mg PO BIDWM 07/23/23 [History Confirmed 09/30/24] Cefdinir 300 mg PO BID #14 cap 11/08/23 [Rx Confirmed 09/30/24] Allergies/Adverse Reactions: Allergies Allergy/AdvReac Type Severity Reaction Status Date / Time No Known Drug Allergies Allergy Verified 09/30/24 20:27 - Physical Exam Vital Signs: Vital Signs - 24 hr Pulse Resp BP Pulse Ox 09/30/24 20:54 97 09/30/24 20:09 86 18 183/78 97 Telemedicine Encounter - Telemedicine Encounter Telemedicine Encounter: "The entirety of this encounter was performed via Telemedicine" This visit was performed using real-time audio and video connection between my location and thepatients locationwith the assistance of a surrogateat the patients location. Written or verbal consent was obtained from the patient/guardian to perform this visit usingnchrvaluescopetelemedicine technology. Any patient questions regarding the telemedicine interaction were answered. <ASHLEE BAILEY - Last Filed: 09/30/24 23:03> History of Present Illness - Chief Complaint Chief Complaint: Feeling unwell for 3 days Date: 09/30/24 History of Present Illness: 64-year-old male with PMH significant fo rCOPD, DM type 2 insulin dependant, HLD, GERD, presents to emergency department for evaluation of feeling unwell for 3 days since he moved into his new apartment.Patient was in our ED approximately 3 to 4 hours prior, at that time he got worked up for abdominal pain.All labs/ imaging remained essentially negative including urine check.He was concerned with his living situation particularly because he felt as though his water was contaminated in his new apartment. Patient was discharged home. Patient return to his apartment but could not stay beyond few hours due to feeling restless. Patient states that he cannot live in the apartment with contaminated water that has already made him sick. Patient is tearful and asking for help ,considering longterm or assisted living placement. He just does not want to live alone. Patient otherwise feels well. No chest pain, SOB, no Diarrhea, no other Git or urinary SX. Patient voices no other complaints or concerns at this time. - Review of Systems All Other Systems: Reviewed and Negative - Past Medical History Past Medical History: Yes Neurological History: Peripheral Neuropathy, Other ENT History: No Pertinent History Cardiac History: Hypertension Respiratory History: COPD Endocrine Medical History: Diabetes Type II Musculoskelatal History: Osteoarthritis GI Medical History: No Pertinent History History: No Pertinent History Pyscho-Social History: No Pertinent History Male Reproductive Disorders: No Pertinent History Comment: SEVERE CONCUSSION WITH TBI, L ANKLE FRACTURE, MULTIPLE L AKLE SPRAINS A KID. - Past Surgical History Past Surgical History: Yes Neuro Surgical History: No Pertinent History Cardiac History: Cardiac Catheterization Respiratory Surgery: No Pertinent History GI Surgical History: No Pertinent History Genitourinary Surgical Hx: No Pertinent History Musculskeletal Surgical Hx: No Pertinent History Male Surgical History: No Pertinent History Other Surgical History: ABLATION - Social History Smoking Status: Never smoker Exposure to second hand smoke: No Alcohol: Rarely Drug Use: none - Social Determinants of Health Will the patient participate in the screening: Yes Do you worry about a steady place to live?: No Do you have any problems with any of the following?: Other In the past 12 months,have you had to go without utilities?: No Have you or anyone in your house had to go without enough: No Transportation Issues: No Has anyone in your support network made you feel unsafe?: No Comment: pt states that the water in his appartment smells like rotten eggs and is bad - Physical Exam Vital Signs: Vital Signs - 24 hr Pulse Resp BP Pulse Ox 09/30/24 20:54 97 09/30/24 20:09 86 18 183/78 97 Additional Findings: 09/30/24 21:31 HEENT Middle aged, Obese built in no distress NECK Supple,no thyromegaly, CVS S1+S2 + 0, no murmers RESP Bilateral equal air entry without Crepts/Wheezes heard GIT Soft non tender,non distended Skin, No rah, no Bruises LEGS No Edema PSYCH Normal,mood, judgement and insight NEURO AOX3, no focal deficit Assessment/Plan (1) Abdominal pain Current Visit: No Status: Acute Code(s): R10.9 - UNSPECIFIED ABDOMINAL PAIN (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 Current Visit: Yes Status: Chronic Code(s): E11.39 - TYPE 2 DIABETES W OTH DIABETIC OPHTHALMIC COMPLICATION; E23.2 - DIABETES INSIPIDUS; E11.69 - TYPE 2 DIABETES MELLITUS WITH OTHER SPECIFIED COMPLICATION; H47.20 - UNSPECIFIED OPTIC ATROPHY; H91.90 - UNSPECIFIED HEARING LOSS, UNSPECIFIED EAR (3) Hypertension Current Visit: Yes Status: Chronic Code(s): I10 - ESSENTIAL (PRIMARY) HYPERTENSION (4) Anxiety Current Visit: Yes Status: Acute Code(s): F41.9 - ANXIETY DISORDER, UNSPECIFIED Telemedicine Encounter - Telemedicine Encounter Telemedicine Encounter: The entirety of this encounter was performed via Telemedicine This visit was performed using real-time audio and video connection between my location and thepatients locationwith the assistance of a surrogateat the patients location. Written or verbal consent was obtained from the patient/guardian to perform this visit usingBuyBoxnchrvaluescopetelemedicine technology. Any patient questions regarding the telemedicine interaction were answered. 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 i have reviewed pt labs, V/S and imaging in detail , all question/concerns addressed.
[2024-09-30] MEDS: APRESOLINE 20 MG/ML INJ IV PRN (23:45)
[2024-09-30] MEDS: xanAX 0.25 MG PO SCH (23:45)
[2024-09-30] MEDS: HUMALOG SQ PRN (23:52)
[2024-10-01] MEDS ORDERED: TYLENOL 325 MG PO PRN (02:42)
[2024-10-01 05:22] LABS: Hematocrit 43.7 % (40.1-51.0); Hemoglobin 14.2 g/dL (13.7-17.5); Mean Cell Volume 85.9 fL (79.0-92.2); Mean Corpuscular Hemoglobin 27.9 pg (25.7-32.2); Mean Corpuscular Hgb Concent. 32.5 g/dL (32.3-36.5); Mean Platelet Volume 8.9 fL (9.4-12.4); Platelet Count 174 x10^3/uL (163-337); Red Blood Count 5.09 x10^6/uL (4.63-6.08); White Blood Count 8.2 x10^3/uL (4.23-9.07)
[2024-10-01 06:41] LABS: ANION GAP 16.3 MEQ/L (5-15); Calcium 9.1 mg/dL (8.4-10.2); Creatinine 1 0.77 mg/dL (0.66-1.25); EST GLOMERULAR FILTRATION RATE 98.7 ML/MIN; Potassium 3.9 mmol/L (3.5-5.1)
[2024-10-01] MEDS ORDERED: xanAX 0.25 MG PO PRN (07:22)
[2024-10-01] MEDS ORDERED: MEDICATION INTERVENTION MC SCH (07:30)
[2024-10-01 07:47] VITALS: RESP 18
[2024-10-01] MEDS: Lantus Insulin SQ SCH (08:09)
[2024-10-01 09:00] VITALS: O2SAT 97
[2024-10-01] MEDS: Aldactone 25 MG PO SCH (09:45)
[2024-10-01] MEDS: NEURONTIN PO SCH (09:45)
[2024-10-01] MEDS: COREG 12.5 MG PO SCH (09:46)
[2024-10-01] MEDS: Apresoline 25 MG TABLET PO SCH (09:46)
[2024-10-01] MEDS: ENOXAPARIN SODIUM SQ SCH (09:46)
[2024-10-01] MEDS: ZOCOR 20MG PO SCH (09:46)
[2024-10-01] MEDS: JARDIANCE PO SCH (09:46)
[2024-10-01] MEDS: NORVASC 5 MG PO SCH (09:46)
[2024-10-01] MEDS: CLARITIN 10 MG PO SCH (09:46)
[2024-10-01] MEDS: Protonix 40MG Tablet PO SCH (09:46)
[2024-10-01] MEDS: Advair Hfa 115/21 Common canister IH SCH (09:54)
[2024-10-01] MEDS ORDERED: NON-FORMULARY ITEM (Gabapentin [Neurontin] 600 MG Tablet) PO SCH (10:00)
[2024-10-01] MEDS ORDERED: NON-FORMULARY ITEM (Atorvastatin Calcium [Lipitor] 80 MG Tablet) PO SCH (10:00)
[2024-10-01] MEDS ORDERED: NON-FORMULARY ITEM (Carvedilol [Carvedilol] 25 MG Tablet) PO SCH (10:00)
[2024-10-01] MEDS ORDERED: NON-FORMULARY ITEM (Fluticasone/Umeclidin/Vilanter [Trelegy Ellipta 100-62.5-25] 1 EACH Bl PO SCH (10:00)
[2024-10-01] MEDS: PHARMACY DOSING REQUEST MC ONE (10:40)
[2024-10-01] MEDS: CEPACOL SORE THROAT LOZENGE PO PRN (10:43)
[2024-10-01 13:17] VITALS: BP 132/71; PULSE 76; TEMP 97.7
--- NOTE | 2024-10-01 14:09 | PCM.DS ---
Discharge Summary Date of Admission: 09/30/24 22:09 Date of Discharge: 10/01/24 Admitting Physician: ASHLEE BAILEY MD Consults: Consults on Case 09/30/24 20:27 ACO SDOH Referral ONCE 10/01/24 07:40 Nutritional Consult ROUTINE 10/01/24 07:43 Psychiatric Consult STAT Primary Care Provider: KIKE RICE Allergies Allergies No Known Drug Allergies Allergy (Verified 09/30/24 20:27) Hospital Summary - Hospital Course Hospital Course: 64-year-old male with PMH significant for COPD, DM type 2 insulin dependant, HLD, GERD, and morbid obesity. Presented to emergency department on 09/30/24 for evaluation of feeling unwell for 3 days since he moved into his new apartment. Patient was in our ED approximately 3 to 4 hours prior, at that time he got worked up for abdominal pain. All labs/ imaging remained essentially negative including urine check. He was concerned with his living situation particularly because he felt as though his water was contaminated in his new apartment. Patient was discharged home. Patient return to his apartment but could not stay beyond few hours due to feeling restless. Patient states that he cannot live in the apartment with contaminated water that has already made him sick. Patient is tearful and asking for help, considering long term or assisted living placement. He just does not want to live alone. Patient otherwise feels well. No chest pain, SOB, no Diarrhea, no other GI or urinary SX. Today pt spoke with mental health worker and developed OP plan to return back to apartment. There will be someone there to check out his water today. He is going to buy bottled water to drink. He denies suicidal or homicidal ideation. Case management to provide information for [facility] OP f/u care. He would like a new PCP here in [place] as his previous PCP is in [place] and that is to far for him to drive now. He denies any further concerns at this time. - Vitals & Intake/Output Vital Signs: Vital Signs Temperature 97.7 F 10/01/24 12:00 Pulse Rate 76 10/01/24 12:00 Respiratory Rate 18 10/01/24 12:00 Blood Pressure 132/71 10/01/24 12:00 O2 Sat by Pulse Oximetry 97 10/01/24 12:00 Intake & Output: Intake & Output 11/18/24 11/19/24 11/20/24 11/21/24 11:59 11:59 11:59 11:59 Intake Total 360 120 Balance 360 120 Weight 144.6 kg - Lab Result Diagrams: 10/01/24 04:55 10/01/24 04:55 Lab Results-Last 24 Hrs: Lab Results-Last 24 Hours 10/01/24 10/01/24 10/01/24 Range/Units 04:55 04:55 04:55 WBC 8.2 (4.23-9.07) x10^3/uL RBC 5.09 (4.63-6.08) x10^6/uL Hgb 14.2 (13.7-17.5) g/dL Hct 43.7 (40.1-51.0) % MCV 85.9 (79.0-92.2) fL MCH 27.9 (25.7-32.2) pg MCHC 32.5 (32.3-36.5) g/dL RDW 18.0 H (11.6-14.4) % Plt Count 174 (163-337) x10^3/uL MPV 8.9 L (9.4-12.4) fL Sodium 140 (135-145) mmol/L Potassium 3.9 (3.5-5.1) mmol/L Chloride 105 (98-107) mmol/L Carbon Dioxide 23 (22-30) mmol/L Anion Gap 16.3 H (5-15) MEQ/L BUN 17 (9-20) mg/dL Creatinine 0.77 (0.66-1.25) mg/dL Estimated GFR 98.7 ML/MIN Glucose 189 H (74-106) mg/dL Hemoglobin A1c 6.75 H (4.5-6.0) % Calcium 9.1 (8.4-10.2) mg/dL Micro Results-Entire Visit: Accuchecks Date 10/01/24 Date 10/01/24 - Procedures and Test Procedures and Tests throughout Hospitalization: Therapy Orders & Screens 09/30/24 22:44 PT Eval & Treat ( Order) ONCE Reason for Eval:: weakness 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, 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 10/01/24 00:09 BiPap/CPAP ROUTINE Comment: Diagnosis: Feeling unwell for 3 days 10/02/24 07:00 Respiratory Therapy Assessment DAILY Comment: Diagnosis: Feeling unwell for 3 days Discharge Exam General Appearance: no apparent distress, alert, obese Neurologic Exam: alert, 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, cooperative, normal mood/affect, nml cerebellar function, sensation nml, No motor deficits Eye Exam: PERRL, EOMI, eyes nml inspection Ears, Nose, Throat Exam: normal ENT inspection, pharynx normal, moist mucous membranes Neck Exam: normal inspection, non-tender, supple, full range of motion Respiratory Exam: normal breath sounds, lungs clear, No respiratory distress Cardiovascular Exam: regular rate/rhythm, normal heart sounds Gastrointestinal/Abdomen Exam: soft, No tenderness, No mass Male Genitalia Exam: deferred Rectal Exam: deferred Back Exam: normal inspection, normal range of motion, No CVA tenderness, No vertebral tenderness Extremity Exam: normal inspection, normal range of motion Skin Exam: normal color, warm, dry Final Diagnosis/Problem List - Final Discharge Diagnosis/Problem (1) Depression Current Visit: Yes Status: Acute Code(s): F32.A - DEPRESSION, UNSPECIFIED (2) Type II diabetes mellitus Current Visit: Yes Status: Acute (3) Morbid obesity Current Visit: Yes Status: Acute Code(s): E66.01 - MORBID (SEVERE) OBESITY DUE TO EXCESS CALORIES (4) Abdominal pain Current Visit: Yes Status: Acute Code(s): R10.9 - UNSPECIFIED ABDOMINAL PAIN (5) COPD (chronic obstructive pulmonary disease) Current Visit: Yes Status: Acute (6) Hyperlipidemia Current Visit: Yes Status: Acute Code(s): E78.5 - HYPERLIPIDEMIA, UNSPECIFIED (7) Anxiety Current Visit: Yes Status: Acute Code(s): F41.9 - ANXIETY DISORDER, UNSPECIFIED (8) Hypertension Current Visit: Yes Status: Chronic Code(s): I10 - ESSENTIAL (PRIMARY) HYPERTENSION - Discharge Discharge Date: 10/01/24 Disposition: Home, Self-Care Condition: Stable Prescriptions: Continue Ropinirole HCl 1 tab PO HS Empagliflozin [Jardiance] 1 tab PO DAILY Gabapentin [Neurontin] 1 cap PO BID Insulin Glargine [Lantus Insulin] 80 units SQ BIDWMEALS Amlodipine Besylate 5 mg [Norvasc 5 mg] 10 mg PO DAILY Spironolactone 25 mg [Aldactone 25 MG] 1 tab PO DAILY Fluticasone/Umeclidin/Vilanter [Trelegy Ellipta 100-62.5-25] 1 puff PO DAILY Atorvastatin Calcium [Lipitor] 1 tab PO DAILY carvediloL [Carvedilol] 1 tab PO BID Hydrochlorothiazide 25 mg [hydroDIURIL 25 MG] 1 tab PO DAILY PANTOPRAZOLE 40 mg Tablet [Protonix 40MG Tablet] 1 tab PO DAILY Fluticasone Propionate [Flonase NASAL] 1 spray INTRANASAL DAILY PRN PRN Reason: Allergies Gabapentin [Neurontin ] 800 mg PO HS Metformin HCl 500 mg [Glucophage 500 MG] 500 mg PO BIDWM HydrALAzine HCL 25 MG TAB [Apresoline 25 MG TABLET] 25 mg PO BID Cefdinir 300 mg PO BID #14 cap Additional Instructions: REFERRAL SENT TO [facility]. THEY WILL CALL YOU TO MAKE AN APT TO COME SEE YOU. THEIR PHONE NUMBER IS [phone]. A REFERRAL WAS SENT TO [facility]- THEY WILL CALL YOU TO SEE IF YOUR ARE INTERSTED IN SERVICES. YOU CAN FOLLOW UP WITH THEM AT [phone] YOU CAN ALSO CALL THE [facility] AT [phone] TO MAKE A FOLLOW UP APT WITH THEM. Follow up with: SEBASTIEN UGARTE I., KIKE [Primary Care Provider] -
[2024-10-01] MEDS ORDERED: Neurontin PO SCH (22:00)
[2024-10-01] MEDS ORDERED: NON-FORMULARY ITEM (Ropinirole Hcl [Ropinirole Hcl] 1 MG Tablet) PO SCH (22:00)
[2024-10-01] MEDS ORDERED: REQUIP 2MG TAB PO SCH (22:00)
== END 2024-10-01 14:55 | disposition home health service (06) ==
LOC: ED 19:40 → MED SURG 22:09
PROVIDERS: ADMIT Internal Medicine; ATTEND Internal Medicine
DX: F32.A Depression, unspecified (principal); F41.9 Anxiety disorder, unspecified; Z59.12 Inadequate housing utilities; E78.5 Hyperlipidemia, unspecified; E66.01 Morbid (severe) obesity due to excess calories; R10.9 Unspecified abdominal pain; I10 Essential (primary) hypertension; H91.90 Unspecified hearing loss, unspecified ear; E11.39 Type 2 diabetes mellitus with other diabetic ophthalmic complication; E11.69 Type 2 diabetes mellitus with other specified complication; H47.20 Unspecified optic atrophy; Z79.899 Other long term (current) drug therapy
CPT/HCPCS: 36415; 80048; 83036; 85027; 90791; 94640; 94660; 94760; 97161; 99283; G0378; Q3014; J0360; J1650; J1817; A9270-GY

== ENCOUNTER 2025-08-23 23:31 | Emergency (ER) | payer MEDICARE ==
--- NOTE | 2025-08-23 23:50 | ERPHSYRPT ---
- History of Present Illness Time Seen by Provider: 08/23/25 23:37 Historian: patient Exam Limitations: no limitations Physician History: 65-year-old male history of diabetes presents to the emergency room with nausea vomiting diarrhea and abdominal discomfort for the past 3 days patient reports that sugars have been in the 90s denies any urinary symptoms denies any recent travel trauma denies any recent antibiotic use patient reports she has had 1 sick contact but unsure as to what they had denies any rash now ED for further eval Timing/Duration: day(s) (3) Activities at Onset: none Quality: aching Abdominal Pain Onset Location: epigastric Pain Radiation: no radiation Severity of Pain-Max: mild Severity of Pain-Current: mild Associated Symptoms: diarrhea, nausea, vomiting Allergies/Adverse Reactions: No Known Drug Allergies Allergy (Unverified 08/23/25 23:58) - Review of Systems Constitutional: No Fever, No Chills Eyes: No Symptoms Ears, Nose, & Throat: No Symptoms Respiratory: No Cough, No Dyspnea Cardiac: No Chest Pain, No Edema, No Syncope Abdominal/Gastrointestinal: Abdominal Pain, Nausea, Vomiting, Diarrhea Genitourinary Symptoms: No Dysuria Musculoskeletal: No Back Pain, No Neck Pain Skin: No Rash Neurological: No Dizziness, No Focal Weakness, No Sensory Changes Psychological: No Symptoms Endocrine: No Symptoms All Other Systems: Reviewed and Negative - Nursing Vital Signs Nursing Vital Signs: Initial Vital Signs Temperature 97.7 F 08/23/25 23:39 Pulse Rate 66 08/23/25 23:39 Respiratory Rate 18 08/23/25 23:39 Blood Pressure 175/91 08/23/25 23:39 O2 Sat by Pulse Oximetry 95 08/23/25 23:39 Pain Scale Pain Intensity 0 - Physical Exam General Appearance: no apparent distress, alert Eye Exam: PERRL/EOMI, eyes nml inspection Ears, Nose, Throat Exam: normal ENT inspection, pharynx normal, moist mucous membranes Neck Exam: normal inspection, non-tender, supple, full range of motion Respiratory Exam: normal breath sounds, lungs clear, No respiratory distress Cardiovascular Exam: regular rate/rhythm, normal heart sounds Gastrointestinal/Abdomen Exam: soft, other (obese abdomen), No tenderness, No mass Back Exam: normal inspection, normal range of motion, No CVA tenderness, No vertebral tenderness Extremity Exam: normal inspection, normal range of motion, pelvis stable Neurologic Exam: alert, 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, cooperative, normal mood/affect, nml cerebellar function, sensation nml, No motor deficits Skin Exam: normal color, warm, dry - Course Nursing assessment & vital signs reviewed: Yes EKG Interpreted by Me: RATE (65), Sinus Rhythm, Left Bundle Branch Block, Non- specific ST Changes (no stemi) Ordered Tests: Active Orders 24 hr Category Date Time Status EKG-ER Only STAT Care 08/23/25 23:47 Active IV Insertion STAT Care 08/23/25 23:47 Active ABDOMEN AND PELVIS W CONTRAST [CT] Stat Exams 08/24/25 00:53 Completed CHEST 1 VIEW (PORTABLE) Stat Exams 08/24/25 00:53 Taken Lactic Acid Stat Lab 08/23/25 23:47 Completed UA W/RFX UR CULTURE Stat Lab 08/23/25 23:58 Completed Medication Summary Discontinued Medications Generic Name Dose Route Start Last Admin Trade Name Freq PRN Reason Stop Dose Admin Famotidine 20 mg 08/23/25 23:47 08/24/25 00:36 Famotidine 20 Mg/1 Vial IV 08/23/25 23:48 20 mg STAT ONE Administration Famotidine Confirm 08/24/25 00:34 Famotidine 20 Mg/1 Vial Administered 08/24/25 00:35 Dose 20 mg IV .STK-MED ONE Sodium Chloride 1,000 mls @ 999 mls/hr 08/23/25 23:47 08/24/25 01:35 Sodium Chloride 0.9% 1000 Ml IV 08/24/25 00:47 Infused .Q1H1M STA Infusion Sodium Chloride Confirm 08/24/25 00:34 Sodium Chloride 0.9% 1000 Ml Administered 08/24/25 00:35 Dose 1,000 mls @ ud .ROUTE .STK-MED ONE Ondansetron HCl 4 mg 08/23/25 23:47 08/24/25 00:36 Ondansetron Hcl 4 Mg/2 Ml Vial IV 08/23/25 23:48 4 mg STAT ONE Administration Ondansetron HCl Confirm 08/24/25 00:34 Ondansetron Hcl 4 Mg/2 Ml Vial Administered 08/24/25 00:35 Dose 4 mg .ROUTE .STK-MED ONE Lab/Rad Data: Laboratory Result Diagrams 08/23/25 00:09 10/12/25 00:09 Laboratory Results 08/24/25 08/23/25 08/23/25 Range/Units 00:23 23:58 00:09 WBC (4.23-9.07) x10^3/uL RBC (4.63-6.08) x10^6/uL Hgb (13.7-17.5) g/dL Hct (40.1-51.0) % MCV (79.0-92.2) fL MCH (25.7-32.2) pg MCHC (32.3-36.5) g/dL RDW (11.6-14.4) % Plt Count (163-337) x10^3/uL MPV (9.4-12.4) fL Gran % (34.0-67.9) % Immature Gran % (Auto) (0.001-0.429) % Nucleat RBC Rel Count (0.00-0.2) % Eos # (Auto) (0.04-0.54) x10^3/uL Immature Gran # (Auto) (0.001-0.031) x10^3u/L Absolute Lymphs (auto) (1.32-3.57) x10^3/uL Absolute Monos (auto) (0.30-0.82) x10^3/uL Absolute Nucleated RBC (0.00-0.012) x10^3u/L Lymphocytes % (21.8-53.1) % Monocytes % (5.3-12.2) % Eosinophils % (0.8-7.0) % Basophils % (0.2-1.2) % Absolute Granulocytes (1.78-5.38) x10^3/uL Basophils # (0.01-0.08) x10^3/uL Sodium 139 (135-145) mmol/L Potassium 4.2 (3.5-5.1) mmol/L Chloride 101 (98-107) mmol/L Carbon Dioxide 26 (22-30) mmol/L Anion Gap 15.9 H (5-15) MEQ/L BUN 24 H (9-20) mg/dL Creatinine 0.90 (0.66-1.25) mg/dL Estimated GFR 93.6 ML/MIN Glucose 150 H (74-106) mg/dL Lactic Acid 3.3 H (0.4-2.0) Calcium 9.2 (8.4-10.2) mg/dL Total Bilirubin 0.50 (0.2-1.3) mg/dL AST 30 (17-59) U/L ALT 46 (0-50) U/L Alkaline Phosphatase 74 (38-126) U/L Troponin I < 0.012 (0.000-0.033) ng/mL Serum Total Protein 7.8 (6.3-8.2) g/dL Albumin 4.7 (3.5-5.0) g/dL Lipase 147 (23-300) U/L Urine Color Yellow (Yellow) Urine Appearance Clear (Clear) Urine pH 5.5 (4.6-8.0) Ur Specific [place] >=1.030 A (1.005-1.030) Urine Protein 30 (Negative) Urine Glucose (UA) 500 A (Negative) mg/dL Urine Ketones Trace A (Negative) Urine Blood Negative (Negative) Urine Nitrite Negative (Negative) Urine Bilirubin Negative (Negative) Urine Urobilinogen 0.2 (0.2) mg/dL Ur Leukocyte Esterase Negative (Negative) U Hyaline Cast (Auto) NONE SEEN (0-2) /LPF Urine Microscopic RBC 0-2 (0-5) /HPF Urine Microscopic WBC 6-10 A (0-5) /HPF Ur Epithelial Cells None Seen (None Seen) /HPF Urine Bacteria None Seen (None Seen) /HPF Urine Culture Reflexed NO (NO) 08/23/25 Range/Units 00:09 WBC 9.9 H (4.23-9.07) x10^3/uL RBC 5.50 (4.63-6.08) x10^6/uL Hgb 15.9 (13.7-17.5) g/dL Hct 49.5 (40.1-51.0) % MCV 90.0 (79.0-92.2) fL MCH 28.9 (25.7-32.2) pg MCHC 32.1 L (32.3-36.5) g/dL RDW 14.2 (11.6-14.4) % Plt Count 197 (163-337) x10^3/uL MPV 9.3 L (9.4-12.4) fL Gran % 64.9 (34.0-67.9) % Immature Gran % (Auto) 0.3 (0.001-0.429) % Nucleat RBC Rel Count 0.0 (0.00-0.2) % Eos # (Auto) 0.28 (0.04-0.54) x10^3/uL Immature Gran # (Auto) 0.03 (0.001-0.031) x10^3u/L Absolute Lymphs (auto) 2.38 (1.32-3.57) x10^3/uL Absolute Monos (auto) 0.74 (0.30-0.82) x10^3/uL Absolute Nucleated RBC 0.00 (0.00-0.012) x10^3u/L Lymphocytes % 24.0 (21.8-53.1) % Monocytes % 7.5 (5.3-12.2) % Eosinophils % 2.8 (0.8-7.0) % Basophils % 0.5 (0.2-1.2) % Absolute Granulocytes 6.43 H (1.78-5.38) x10^3/uL Basophils # 0.05 (0.01-0.08) x10^3/uL Sodium (135-145) mmol/L Potassium (3.5-5.1) mmol/L Chloride (98-107) mmol/L Carbon Dioxide (22-30) mmol/L Anion Gap (5-15) MEQ/L BUN (9-20) mg/dL Creatinine (0.66-1.25) mg/dL Estimated GFR ML/MIN Glucose (74-106) mg/dL Lactic Acid (0.4-2.0) Calcium (8.4-10.2) mg/dL Total Bilirubin (0.2-1.3) mg/dL AST (17-59) U/L ALT (0-50) U/L Alkaline Phosphatase (38-126) U/L Troponin I (0.000-0.033) ng/mL Serum Total Protein (6.3-8.2) g/dL Albumin (3.5-5.0) g/dL Lipase (23-300) U/L Urine Color (Yellow) Urine Appearance (Clear) Urine pH (4.6-8.0) Ur Specific [place] (1.005-1.030) Urine Protein (Negative) Urine Glucose (UA) (Negative) mg/dL Urine Ketones (Negative) Urine Blood (Negative) Urine Nitrite (Negative) Urine Bilirubin (Negative) Urine Urobilinogen (0.2) mg/dL Ur Leukocyte Esterase (Negative) U Hyaline Cast (Auto) (0-2) /LPF Urine Microscopic RBC (0-5) /HPF Urine Microscopic WBC (0-5) /HPF Ur Epithelial Cells (None Seen) /HPF Urine Bacteria (None Seen) /HPF Urine Culture Reflexed (NO) - Progress Progress Note: 08/24/25 02:36 FINDINGS: The visualized lung bases are clear. The liver is normal in size and attenuation. A few hypodense lesions are noted in the right lobe of the liver, which appear benign and could be cysts. (Advice: Triphasic study correlation is recommended.) There is no intra- or extrahepatic biliary ductal dilatation. Hepatic vasculature is patent. The gallbladder is present. The spleen, pancreas, and adrenal glands are unremarkable. The kidneys are normal in size and attenuation. There is no hydronephrosis or perinephric fat stranding. No renal calculi or renal masses are identified. A few simple cortical cysts are noted in both kidneys. The ureters are normal in caliber, and no ureteral calculi are seen. The bladder is normal in contour. Pelvic viscera are unremarkable. No focal or diffuse bowel wall thickening or evidence of bowel obstruction is identified. There is no imaging evidence of appendicitis. Abdominal and pelvic vasculature is patent. No adenopathy or fluid collections are seen. No aggressive appearing osseous lesions are identified. Fat-containing bilateral inguinal hernias are present. Degenerative changes involving the spine are seen in the form of multilevel marginal osteophytes, disc space reduction, and facetal arthrosis. IMPRESSION: A few hypodense lesions are noted in the right lobe of the liver, which appear benign and could be cysts. (Advice: Triphasic study correlation is recommended.) A few simple cortical cysts are noted in both kidneys. Fat-containing bilateral inguinal hernias are present. - Departure Departure Disposition: Home Clinical Impression: Hiatal hernia, Renal cyst, Liver cyst Condition: Stable Critical Care Time: No Referrals: DOCTOR,NO FAMILY [NON-STAFF PHY W/O PRIVILEGES, UNKNOWN] - Follow up/PCP as directed Instructions: Nausea -- Adult, Vomiting -- Adult, Hiatal hernia Prescriptions: Ondansetron ODT 4 MG [Zofran Odt 4 mg] 4 mg PO Q6HPRN PRN #10 tab PRN Reason: Nausea
[2025-08-23 23:58] VITALS: TEMP 97.7
[2025-08-24 00:11] LABS: BASOPHIL % 0.5 % (0.2-1.2); Basophil (Absolute #) 0.05 x10^3/uL (0.01-0.08); Eosinophil (Absolute #) 0.28 x10^3/uL (0.04-0.54); Hematocrit 49.5 % (40.1-51.0); Hemoglobin 15.9 g/dL (13.7-17.5); IMMATURE GRAN # 0.03 x10^3u/L (0.001-0.031); IMMATURE GRAN % 0.3 % (0.001-0.429); Lymphocyte (Absolute #) 2.38 x10^3/uL (1.32-3.57); Mean Corpuscular Hemoglobin 28.9 pg (25.7-32.2); Mean Corpuscular Hgb Concent. 32.1 g/dL (32.3-36.5); Monocyte (Absolute #) 0.74 x10^3/uL (0.30-0.82); NUCLEATED RBC # 0.00 x10^3u/L (0.00-0.012); NUCLEATED RBC % 0.0 % (0.00-0.2); Platelet Count 197 x10^3/uL (163-337); Red Blood Count 5.50 x10^6/uL (4.63-6.08); White Blood Count 9.9 x10^3/uL (4.23-9.07)
[2025-08-24] MEDS ORDERED: Zofran 4 MG/2 ML VIAL ONE (00:34)
[2025-08-24] MEDS ORDERED: Pepcid 20 MG VIAL IV ONE (00:34)
[2025-08-24] MEDS: Pepcid 20 MG VIAL IV ONE (00:36)
[2025-08-24] MEDS: Zofran 4 MG/2 ML VIAL IV ONE (00:36)
[2025-08-24 00:46] LABS: Glucose, Urine 500 mg/dL (Negative); Protein,Urine Dip 30 (Negative); RBC 0-2 /HPF (0-5)
[2025-08-24 00:51] LABS: Calcium 9.2 mg/dL (8.4-10.2); Carbon Dioxide 26 mmol/L (22-30); Creatinine 1 0.90 mg/dL (0.66-1.25); EST GLOMERULAR FILTRATION RATE 93.6 ML/MIN; Glucose 150 mg/dL (74-106); Potassium 4.2 mmol/L (3.5-5.1); SGOT/AST 30 U/L (17-59); SGPT/ALT 46 U/L (0-50); TROPONIN < 0.012 ng/mL (0.000-0.033); Total Protein 7.8 g/dL (6.3-8.2)
--- NOTE | 2025-08-24 02:33 | XRAY ---
CLINICAL HISTORY: abd pain COMPARISON: None. TECHNIQUE: Contiguous axial images were obtained from the level of the diaphragm to the pubic symphysis with intravenous contrast. Coronal and sagittal reconstructions were likewise performed and indicated to increase the sensitivity for detecting clinically relevant pathology. If IV contrast material had not been administered, the likelihood of detecting abnormalities relevant to the patient's condition would have been substantially decreased. The CT scan was performed according to ALARA (as low as reasonably achievable). FINDINGS: The visualized lung bases are clear. The liver is normal in size and attenuation. A few hypodense lesions are noted in the right lobe of the liver, which appear benign and could be cysts. (Advice: Triphasic study correlation is recommended.) There is no intra- or extrahepatic biliary ductal dilatation. Hepatic vasculature is patent. The gallbladder is present. The spleen, pancreas, and adrenal glands are unremarkable. The kidneys are normal in size and attenuation. There is no hydronephrosis or perinephric fat stranding. No renal calculi or renal masses are identified. A few simple cortical cysts are noted in both kidneys. The ureters are normal in caliber, and no ureteral calculi are seen. The bladder is normal in contour. Pelvic viscera are unremarkable. No focal or diffuse bowel wall thickening or evidence of bowel obstruction is identified. There is no imaging evidence of appendicitis. Abdominal and pelvic vasculature is patent. No adenopathy or fluid collections are seen. No aggressive appearing osseous lesions are identified. Fat-containing bilateral inguinal hernias are present. Degenerative changes involving the spine are seen in the form of multilevel marginal osteophytes, disc space reduction, and facetal arthrosis. IMPRESSION: A few hypodense lesions are noted in the right lobe of the liver, which appear benign and could be cysts. (Advice: Triphasic study correlation is recommended.) A few simple cortical cysts are noted in both kidneys. Fat-containing bilateral inguinal hernias are present. Electronically Signed by: Anthony Bhat MD. (08/24/2025 02:32:10 EDT)
[2025-08-24] MEDS ORDERED: Lactated Ringers 1,000 ML IV ONE (02:57)
[2025-08-24] MEDS: Lactated Ringers 1,000 ML IV ONE (02:59)
[2025-08-24 04:05] VITALS: BP 160/73; PULSE 61; RESP 18; O2SAT 97
--- NOTE | 2025-08-24 08:39 | XRAY ---
Indication: Pain. Comparison: None Portable chest inflated and clear. Heart and mediastinal structures within normal limits. Bony thorax intact with osteopenia and mild degenerative changes. Impression: Nonacute chest with chronic bony findings.
== END 2025-08-24 04:15 | disposition home or self-care (01) ==
LOC: MERGE 23:31 → ED 23:31
DX: K44.9 Diaphragmatic hernia without obstruction or gangrene (principal); N28.1 Cyst of kidney, acquired; K76.89 Other specified diseases of liver; R11.2 Nausea with vomiting, unspecified; R19.7 Diarrhea, unspecified; R10.13 Epigastric pain

== ENCOUNTER 2025-09-08 06:02 | Day surgery (SDC) | payer MEDICARE ==
[2025-09-08 06:32] VITALS: RESP 16
[2025-09-08 06:36] LABS: Hematocrit 45.6 % (40.1-51.0); Hemoglobin 15.2 g/dL (13.7-17.5); Mean Corpuscular Hemoglobin 29.2 pg (25.7-32.2); Mean Corpuscular Hgb Concent. 33.3 g/dL (32.3-36.5); Platelet Count 187 x10^3/uL (163-337); Red Blood Count 5.21 x10^6/uL (4.63-6.08); White Blood Count 8.3 x10^3/uL (4.23-9.07)
[2025-09-08] MEDS ORDERED: Versed 2 MG/2 ML Injection ONE (06:46)
[2025-09-08] MEDS ORDERED: propofoL IV ONE ×3 (06:46→07:44)
[2025-09-08] MEDS ORDERED: SUBLIMAZE 100 MCG/2 ML ONE (06:46)
[2025-09-08 06:53] LABS: Calcium 8.9 mg/dL (8.4-10.2); Carbon Dioxide 24.0 mmol/L (22-30); Creatinine 1 0.85 mg/dL (0.66-1.25); EST GLOMERULAR FILTRATION RATE 95.2 ML/MIN; Glucose 182.0 mg/dL (74-106); Potassium 3.9 mmol/L (3.5-5.1); SGOT/AST 28.0 U/L (17-59); SGPT/ALT 53.0 U/L (0-50); Total Protein 7.5 g/dL (6.3-8.2)
[2025-09-08 08:56] VITALS: O2SAT 97
[2025-09-08] MEDS: KEFZOL 1 GM** 3 G in Sodium Chloride 0.9% 50 ML 50 ML IV ONE (08:58)
[2025-09-08 09:13] VITALS: BP 151/75; PULSE 56; TEMP 97.5
--- NOTE | 2025-09-08 09:16 | XRAY ---
Indication: Right fibula bone biopsy. Intraoperative fluoroscopy provided for 32 seconds. 8 digital spot images submitted for interpretation demonstrates bone biopsy needle tips projecting adjacent to lateral malleolus, calcaneus, and medial aspect distal tibia. Correlate with intraoperative findings/report.
--- NOTE | 2025-09-08 10:23 | XRAY ---
32 seconds of fluoroscopy was used in surgery for a right fibula bone biopsy.
--- NOTE | 2025-09-09 09:56 | OP ---
SURGERY DATE/TIME: 09/08/2025 [id number] PREOPERATIVE DIAGNOSES: 1) Charcot osteoarthropathy, right ankle. 2) Ankle varus deformity. 3) Osteomyelitis/rule out. POSTOPERATIVE DIAGNOSES: 1) Charcot osteoarthropathy, right ankle. 2) Ankle varus deformity. 3) Osteomyelitis/rule out. PROCEDURES: 1) Bone biopsy and culture to right tibia. 2) Bone biopsy and culture to right fibula. 3) Bone biopsy and culture to right talus. 4) Bone biopsy and culture to right calcaneus. SURGEON: Mark Booker DPM GAS JOCKEY: None. ANESTHESIA: Monitored anesthesia care. HEMOSTASIS: Pressure dressing. ESTIMATED BLOOD LOSS: Approximately 10 mL. MATERIALS: 3-0 nylon. INDICATIONS: The patient is a very pleasant 65-year-old male who is known to my service from not too terribly long ago; however, 18 months ago patient was treated conservatively for complaints of posterior ankle pain localized to the Achilles insertion. Clinical examination found at that time findings consistent with insertional Achilles tendinitis in the setting of chronic venous insufficiency and baseline peripheral neuropathy involving bilateral lower extremity. There were no clinical findings suggestive of acute Charcot osteoarthropathy or neuroarthropathy, specifically pertaining to warmth, swelling, erythema, deformity or instability. With followup in November, the symptoms were seemingly improving with conservative management. At that time, radiographs were not obtained as the presentation did not meet [place] Ankle Rules criteria, which there was no concern for osseous injury. Patient was then subsequently seen by another provider in April or May of the same year, at which that time Charcot process was diagnosed. Over the ensuing 18 months, the patient was managed nonsurgically by another provider where eventually he was placed in a CHILKOOT boot and then, developing a chronic wound and progressive severe varus ankle deformity. It is noted that in this time patient was lost to followup. He represented within the last 2 weeks with end-stage tibiotalar collapse and chronic deformity consistent with Eichenholtz Stage 3 Charcot arthropathy of the ankle. Today, the goal of the procedure is to prove with bone biopsies that there is no superimposed infection. Hopefully this is the case and this will help us to guide definitive reconstructive or limb salvage management. Patient has been made aware of all risks, complications and benefits of surgical intervention at this time including but not limited to, infection, hematoma, seroma, possibility of delayed wound healing, non-wound healing and possible need for further surgical intervention at a later date. This is anticipated to be a staged procedure as we are obtaining bone biopsies to confirm or deny the presence of infection at this time. He understands that this will be a staged procedure, possibly 2, however, can be 3 procedures in order to get definitive fixation taken care of. From that standpoint, plenty of time was allowed for the patient and his girlfriend to ask questions, which were answered to their apparent satisfaction. No guarantees were provided as to the outcome. It is at this time we decided to proceed. DESCRIPTION OF PROCEDURE AND FINDINGS: Patient was brought into the operating room and placed on the operating room table in the supine position. At this time, general anesthesia was administered until the patient was adequately sedated. Once the patient was adequately sedated, the right lower extremity was prepped and draped in the typical sterile fashion and lowered on the surgical field. At this time, under fluoroscopic guidance, attention was directed to the right tibia medially under fluoroscopic guidance, where there was fragmentation of the bone and a bone biopsy was obtained after making a small stab incision, utilizing a 15 blade, utilizing a mini curved hemostat, creating blunt dissection down to the level of the bone and then, utilizing a Jamshidi needle to take 2 core biopsies of the bone, 1 for pathology and 1 for microbiology. These were both handed off the field. The subsequent procedure was carried out to all the tibia, the talus, the fibula and the calcaneus. Following this, copious amounts of sterile saline were utilized to flush the surgical site. A 3-0 nylon was utilized in a simple interrupted fashion to coapt the stab incisions. A dressing consisting of Iodine and Mepilex was applied to the patient's right lower extremity. Patient was then reversed from anesthesia and returned to the postoperative anesthesia care unit with vital signs stable and vascular status intact. The patient handled the anesthesia, as well as the procedure, without significant complication. Postoperative orders as indicated in the patient's discharge chart.
== END 2025-09-08 09:27 | disposition home or self-care (01) ==
LOC: SDC 06:02
PROVIDERS: ATTEND Podiatrist Foot & Ankle Surgery
DX: M14.671 Charcot's joint, right ankle and foot (principal); M21.171 Varus deformity, not elsewhere classified, right ankle; M86.9 Osteomyelitis, unspecified